=== PATIENT | male | born 1940 | race Caucasian/White ===

== ENCOUNTER 2024-02-29 09:08 | Outpatient (CLI) | payer MEDICARE, SELFPAY | END 2024-02-29 09:09 | disposition home or self-care (01) | LOC: AMB 03-03 00:03 | PROVIDERS: PCP Student in an Organized Health Care Education/Training Program; Visit Provider Family Medicine | DX: R53.1 Weakness (principal); R55 Syncope and collapse | CPT/HCPCS: A0425; A0427 ==

== ENCOUNTER 2024-02-29 09:36 | Emergency (ER) | payer MEDICARE, SELFPAY ==
[2024-02-29] VITALS (9 sets, daily range): BP systolic 120–156; BP diastolic 58–95; PULSE 60–75; RESP 14–16; TEMP 36.6–36.7; O2SAT 94–97
--- NOTE | 2024-02-29 09:55 | ED.GENADULT ---
HPI - General Adult General Chief complaint: Fall/Minor Trauma Stated complaint: Syncope Time Seen by Provider: 02/29/24 09:39 History of Present Illness HPI narrative: Patient was having a bowel movement this morning, then woke up on the floor. Lives at [facility]. Notes he was able to slowly drag himself across the floor to the phone and contact the nurse at the facility for help. Niece is Kaylie NORTON. Patient notes he recently failed a memory test. He's unable to recall medication doses, pharmacy , etc. Patient reports abrasions to back, pain in shoulders from moving across the floor. 83-year-old man presenting to the emergency department after apparent syncope. Evidently was up to have a bowel movement and woke up on the floor. Denies seizure history. Denies any pain. Says he feels fine now. He was feeling well, in usual state of health. He thinks he may have taken 2 of a newer medication earlier in the morning for ?bladder leakage?. He recalls this to be 1 of the potential side effects. No chest pain. No head pain. No neck pain. No back pain. No shortness of breath. No abdominal pain. Daughter arrives later describing some difficulties in medication management. 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 He is permitting assistance with med management. They have started a pillbox though there may still be a little bit of work to do in this. He may have taken metoprolol rather late at night and then again in the morning. We had been double dosing it in the past? Unclear indication for metoprolol. Does not recall any cardiac injury nor tachy arrhythmia. Related Data Home Medications ?Medication ?Instructions ?Recorded ?Confirmed atorvastatin .ROUTE 02/29/24 losartan .ROUTE 02/29/24 metoprolol succinate PO 02/29/24 Allergies Allergy/AdvReac Type Severity Reaction Status Date / Time No Known Drug Allergies Allergy Verified 02/29/24 09:42 Review of Systems Status of ROS: Reports: 6 or more systems reviewed and unremarkable except as noted in History and below [facility] Social History Smoking Status: Never smoker How often do you have a drink containing alcohol: 2-4 times a month How often do you have six or more drinks on one occasion: Never AUDIT-C Alcohol total score: 2 Non-prescribed substance use: denies use service: No Exam Narrative: Exam Narrative: Pleasant. NAD. Slight difficulty with recall. Head is atraumatic. Moving all extremities without difficulty. No lower extremity edema. Well-perfused. Eyelids are little inflamed and eyes are moist. Cranial nerves 2-12 to be intact. No evidence of oral trauma. Heart in regular rate and rhythm. Abdomen is full/protuberant soft and nontender. Skin looks to be without evidence of injury; specifically I do not see any abrasions, erythema. Const: Vital Signs, click to edit/add: Vital Signs - 24 hr 02/29/24 09:44 02/29/24 10:07 02/29/24 10:11 Temperature 98 F 98 F Pulse Rate [Pulse Oximeter] 64 64 Pulse Rate [orthos tatic lying Left R adial] 60 Pulse Rate [orthos tatic sitting Left Radial] 69 Pulse Rate [orthos tatic standing Lef t Radial] 75 Respiratory Rate 16 16 Blood Pressure [Le ft Upper Arm] 150/77 H 156/68 H Blood Pressure [or thostatic lying Le ft Arm] 156/68 H Blood Pressure [or thostatic sitting Left Arm] 129/76 Blood Pressure [or thostatic standing Left Arm] 126/95 H Pulse Oximetry 97 97 Oxygen Delivery Me thod Room Air Room Air 02/29/24 10:38 02/29/24 11:00 02/29/24 11:30 Temperature Pulse Rate [Pulse Oximeter] 65 66 65 Pulse Rate [orthos tatic lying Left R adial] Pulse Rate [orthos tatic sitting Left Radial] Pulse Rate [orthos tatic standing Lef t Radial] Respiratory Rate 16 14 16 Blood Pressure [Le ft Upper Arm] 127/58 L 136/76 142/73 H Blood Pressure [or thostatic lying Le ft Arm] Blood Pressure [or thostatic sitting Left Arm] Blood Pressure [or thostatic standing Left Arm] Pulse Oximetry 97 97 95 Oxygen Delivery Me thod Room Air Room Air Room Air 02/29/24 12:30 02/29/24 12:45 02/29/24 12:54 Temperature 98.1 F 98.1 F 98.1 F Pulse Rate [Pulse Oximeter] 66 66 66 Pulse Rate [orthos tatic lying Left R adial] Pulse Rate [orthos tatic sitting Left Radial] Pulse Rate [orthos tatic standing Lef t Radial] Respiratory Rate 16 16 16 Blood Pressure [Le ft Upper Arm] 120/58 L 120/58 L 120/58 L Blood Pressure [or thostatic lying Le ft Arm] Blood Pressure [or thostatic sitting Left Arm] Blood Pressure [or thostatic standing Left Arm] Pulse Oximetry 94 Oxygen Delivery Me thod Room Air Documenting provider has reviewed patient's vital signs: yes Course Vital Signs Vital signs: Initial Vital Signs Temperature 98 F 02/29/24 09:44 Temperature Source Temporal Artery Scan 02/29/24 09:44 Pulse Rate 64 02/29/24 09:44 Respiratory Rate 16 02/29/24 09:44 Blood Pressure 150/77 H 02/29/24 09:44 Blood Pressure Mean 101 02/29/24 09:44 Blood Pressure Position Semi-Fowlers 02/29/24 09:44 Pulse Oximetry 97 02/29/24 09:44 Oxygen Delivery Method Room Air 02/29/24 09:44 Vital Signs Temperature 98 F 02/29/24 09:44 Pulse Rate 64 02/29/24 09:44 Respiratory Rate 16 02/29/24 09:44 Blood Pressure 150/77 H 02/29/24 09:44 Pulse Oximetry 97 02/29/24 09:44 Oxygen Delivery Method Room Air 02/29/24 09:44 Temperature 98.1 F 02/29/24 12:54 Pulse Rate 66 02/29/24 12:54 Respiratory Rate 16 02/29/24 12:54 Blood Pressure 120/58 L 02/29/24 12:54 Pulse Oximetry 94 02/29/24 12:30 Oxygen Delivery Method Room Air 02/29/24 12:30 Medications Administered Medications: Discontinued Medications Generic Name Dose Route Start Last Admin Trade Name Freq PRN Reason Stop Dose Admin Ceftriaxone Sodium 1 gm 02/29/24 12:11 02/29/24 12:26 Ceftriaxone 1 Gm Vial IM 02/29/24 12:12 1 gm ONCE ONE Administration Lidocaine HCl 2.1 ml 02/29/24 12:11 02/29/24 12:27 Lidocaine 1% 5 Ml (Pf) 5 Ml Vial IM 2.1 ml DIRECTED PRN Administration Pain Medical Decision Making MDM Narrative Medical decision making narrative: Will need to be clarifying medications. May have been med affect contributing. Does appear to have been a vasovagal event but will look for evidence of cardiovascular injury or dysrhythmia. 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 White count is not elevated. Labs generally reassuring though urinalysis clearly with evidence of infection. Certainly may have contributed to propensity to syncope Be given a dose of Rocephin here in the emergency department does feel well enough to return home. Hemodynamically stable here. No events on monitor. Has been able to rest. Initiating on cephalexin. Urine culture pending. See patient discharge plan for further discussion Lab Data Lab results reviewed: Yes I reviewed the patient's lab results Labs: Lab Results 02/29/24 02/29/24 Range/Units 09:55 10:24 WBC 9.85 (4.50-11.00) K/uL RBC 4.32 (4.30-5.90) m/uL Hgb 13.0 L (13.5-17.5) gm/dL Hct 40.5 (37.0-53.0) % MCV 94 (80-100) fL MCH 30 (26-34) pg MCHC 32 (32-36) gm/dL RDW Coeff of Laura 12.6 (11.5-15.5) % Plt Count 127 L (140-440) K/uL Neut % (Auto) 80.3 H (42.0-72.0) % Lymph % (Auto) 4.5 L (20-44) % Divide % (Auto) 13.9 H (0.0-11.0) % Eos % (Auto) 0.0 (0.0-7.0) % Baso % (Auto) 0.3 (0.0-3.0) % Neut # (Auto) 7.90 H (1.7-7.0) K/uL Lymph # (Auto) 0.40 L (0.90-2.90) K/uL Divide # (Auto) 1.40 H (0.00-0.90) K/UL Eos # (Auto) 0.00 (0.00-0.50) K/uL Baso # (Auto) 0.03 (0.00-0.30) K/uL Abs Immat Gran (auto) 0.10 (0.00-0.30) K/uL Imm/Tot Granulo (auto) 1.0 % Sodium 140 (135-149) mmol/L Potassium 4.7 (3.6-5.1) mmol/L Chloride 105 (96-114) mmol/L Carbon Dioxide 25 (20-32) mmol/L Anion Gap 10 (7-15) mEq/L BUN 25 (7-30) mg/dL Creatinine 1.5 (0.5-1.5) mg/dL Estimated GFR 46 ml/min Glucose 99 (60-115) mg/dL Calcium 9.9 (8.4-10.6) mg/dL Troponin I < 0.01 L (0.01-0.04) ng/mL NT-Pro-B Natriuret Pep 515 pg/mL Urine Color Yellow (Yellow) Urine Appearance Cloudy A (Clear) Urine pH 7.0 (5.0-8.5) Ur Specific [place] 1.015 (1.000-1.030) Urine Protein 3+ A (Negative) Urine Glucose (UA) Negative (Negative) Urine Ketones Negative (Negative) Urine Blood 2+ A (Negative) Urine Nitrite Positive A (Negative) Urine Bilirubin Negative (Negative) Urine Urobilinogen 0.2 (0.2-1.0) Ur Leukocyte Esterase 2+ A (Negative) Urine RBC 2-5 A (0-2) Urine WBC >100 A (0-5) Ur Squamous Epith Cells Few (None-Few) Urine Bacteria Many A (None) ECG Data Attestation: I personally reviewed and interpreted this ECG as follows: (Normal sinus rhythm rate of 65. Baseline irritability. No ischemic changes appreciated) Discharge Plan Discharge Clinical Impression: Cystitis, Syncope Patient Disposition: Home w/ Parent or Adult Condition: Stable Additional Instructions: Do focus on hydration over the next 2-3 days in particular. Take care with transitions. I would also suggest keeping a walker close by and using this over the same time period. Monitor for fever, increasing weakness, repeated vomiting. Would review dosing and need for metoprolol in follow-up clinic visit. Of course be careful not to double dose your medication. Sounds as though you have a good support network. Prescribing cephalexin from [facility]. Urine culture will be pending. Prescriptions: No Action metoprolol succinate PO losartan .ROUTE atorvastatin .ROUTE Stand Alone Forms: Coffee and Power Info Instructions
[2024-02-29 10:29] LABS: Appearance Urine Cloudy (Clear); Bilirubin Urine Negative (Negative); Blood Urine 2+ (Negative); Color Urine Yellow (Yellow); Glucose Urine Negative (Negative); Ketones Urine Negative (Negative); Leukocyte Esterase Urine 2+ (Negative); Nitrite Urine Positive (Negative); Protein Urine 3+ (Negative); Specific Gravity Urine 1.015 (1.000-1.030); Urobilinogen Urine 0.2 (0.2-1.0)
[2024-02-29 10:30] LABS: Basophils Absolute Auto 0.03 K/uL (0.00-0.30); Basophils Percent Auto 0.3 % (0.0-3.0); Hematocrit 40.5 % (37.0-53.0); Lymphocytes Percent Auto 4.5 % (20-44); Mean Corpuscular HGB Conc 32 gm/dL (32-36); Mean Corpuscular Hemoglobin 30 pg (26-34); Mean Corpuscular Volume 94 fL (80-100); Monocytes Percent Auto 13.9 % (0.0-11.0); Neutrophils Percent Auto 80.3 % (42.0-72.0); Platelet Count* 127 K/uL (140-440); RDW Coefficient of Variation % 12.6 % (11.5-15.5); Red Blood Count 4.32 m/uL (4.30-5.90); White Blood Count* 9.85 K/uL (4.50-11.00)
[2024-02-29 10:33] LABS: Slide Review Reflex No
[2024-02-29 10:43] LABS: Chloride* 105 mmol/L (96-114); Potassium* 4.7 mmol/L (3.6-5.1); Sodium* 140 mmol/L (135-149)
[2024-02-29 10:46] LABS: Anion Gap 10 mEq/L (7-15); Carbon Dioxide* 25 mmol/L (20-32); Creatinine* 1.5 mg/dL (0.5-1.5); Estimated Glomerular Filt Rate 46 ml/min
[2024-02-29 10:47] LABS: Blood Urea Nitrogen* 25 mg/dL (7-30); Calcium* 9.9 mg/dL (8.4-10.6); Glucose* 99 mg/dL (60-115)
[2024-02-29 10:52] LABS: Bacteria Urine Many; Squamous Epithelial Cell Urine Few (None-Few); WBC Urine >100 (0-5)
[2024-02-29 11:00] LABS: NT Pro B Type NatriureticPept* 515 pg/mL; Troponin I* < 0.01 ng/mL (0.01-0.04)
[2024-02-29] MEDS: cefTRIAXone 1 GM VIAL IM (12:26)
[2024-02-29] MEDS: LIDOCAINE 1% 5 ml (pf) 5 ML VIAL 2.1 ML IM (12:27)
== END 2024-02-29 12:45 | disposition home or self-care (01) ==
PROVIDERS: Emergency Provider Family Medicine; PCP Student in an Organized Health Care Education/Training Program
DX: R55 Syncope and collapse (principal); N30.90 Cystitis, unspecified without hematuria
CPT/HCPCS: 36415; 80048; 81001; 83880; 84484; 85025; 87086; 87186; 93005; 96372; 99284; J0696

== ENCOUNTER 2024-05-23 13:40 | Outpatient (CLI) | payer MEDICARE, SELFPAY ==
[2024-05-23 15:12] LABS: Chloride* 102 mmol/L (96-114)
[2024-05-23 15:13] LABS: Potassium* 4.4 mmol/L (3.6-5.1); Sodium* 137 mmol/L (135-149)
[2024-05-23 15:15] LABS: Creatinine* 1.3 mg/dL (0.5-1.5); Estimated Glomerular Filt Rate 55 ml/min
[2024-05-23 15:16] LABS: Anion Gap 8 mEq/L (7-15); Blood Urea Nitrogen* 27 mg/dL (7-30); Calcium* 9.3 mg/dL (8.4-10.6); Carbon Dioxide* 27 mmol/L (20-32); Glucose* 90 mg/dL (60-115)
== END 2024-05-23 13:41 | disposition home or self-care (01) ==
LOC: LAB 13:43
PROVIDERS: PCP Student in an Organized Health Care Education/Training Program; Visit Provider Nurse Practitioner Gerontology
DX: I10 Essential (primary) hypertension (principal)
CPT/HCPCS: 36415; 80048

== ENCOUNTER 2024-07-11 18:52 | Outpatient (REF) | payer MEDICARE, SELFPAY ==
[2024-07-11 15:24] LABS: Basophils Percent Auto 0.5 % (0.0-3.0); Eosinophils Percent Auto 1.5 % (0.0-7.0); Hematocrit 38.5 % (37.0-53.0); Hemoglobin* 12.5 gm/dL (13.5-17.5); Immature Granulocytes Pct Auto 4.8 %; Mean Corpuscular HGB Conc 33 gm/dL (32-36); Mean Corpuscular Hemoglobin 30 pg (26-34); Mean Corpuscular Volume 92 fL (80-100); Monocytes Percent Auto 15.3 % (0.0-11.0); Neutrophils Percent Auto 39.9 % (42.0-72.0); Platelet Count* 122 K/uL (140-440); RDW Coefficient of Variation % 12.9 % (11.5-15.5); Red Blood Count 4.17 m/uL (4.30-5.90); White Blood Count* 3.92 K/uL (4.50-11.00)
[2024-07-11 15:29] LABS: Chloride* 104 mmol/L (96-114); Sodium* 138 mmol/L (135-149)
[2024-07-11 15:32] LABS: Anion Gap 7 mEq/L (7-15); Blood Urea Nitrogen* 23 mg/dL (7-30); Carbon Dioxide* 27 mmol/L (20-32); Creatinine* 1.1 mg/dL (0.5-1.5); Estimated Glomerular Filt Rate 67 ml/min; Glucose* 115 mg/dL (60-115)
[2024-07-11 15:55] LABS: Slide Review Reflex Yes
[2024-07-11 16:10] LABS: Slide Review Acceptable Review (Acceptable)
== END 2024-07-11 18:53 | disposition home or self-care (01) ==
LOC: NPINS 18:52
PROVIDERS: PCP Student in an Organized Health Care Education/Training Program; Visit Provider Nurse Practitioner Gerontology
DX: I67.9 Cerebrovascular disease, unspecified (principal); N18.31 Chronic kidney disease, stage 3a
CPT/HCPCS: 36415; 80048; 85025

== ENCOUNTER 2024-11-08 09:38 | Outpatient (REF) | payer MEDICARE, BC, SELFPAY ==
[2024-11-08 10:15] LABS: Chloride* 105 mmol/L (96-114); Sodium* 140 mmol/L (135-149)
[2024-11-08 10:16] LABS: Potassium* 4.7 mmol/L (3.6-5.1)
[2024-11-08 10:18] LABS: Blood Urea Nitrogen* 18 mg/dL (7-30); Creatinine* 1.1 mg/dL (0.5-1.5); Estimated Glomerular Filt Rate 66 ml/min
[2024-11-08 10:19] LABS: Anion Gap 7 mEq/L (7-15); Calcium* 9.2 mg/dL (8.4-10.6); Carbon Dioxide* 28 mmol/L (20-32); Glucose* 114 mg/dL (60-115)
[2024-11-08 10:43] LABS: Hemoglobin A1C* 5.4 % (0-5.6)
== END 2024-11-08 09:39 | disposition home or self-care (01) ==
LOC: NPINS 09:38
PROVIDERS: PCP Student in an Organized Health Care Education/Training Program; Referring Provider Nurse Practitioner Adult Health; Visit Provider Nurse Practitioner Adult Health
DX: R73.09 Other abnormal glucose (principal); N18.31 Chronic kidney disease, stage 3a
CPT/HCPCS: 80048; 83036

== ENCOUNTER 2024-12-07 10:41 | Outpatient (REF) | payer MEDICARE, BC, SELFPAY ==
[2024-12-07 13:23] LABS: Appearance Urine Clear (Clear); Bilirubin Urine Negative (Negative); Blood Urine Negative (Negative); Color Urine Yellow (Yellow); Glucose Urine Negative (Negative); Ketones Urine Negative (Negative); Leukocyte Esterase Urine Negative (Negative); Nitrite Urine Negative (Negative); Protein Urine Negative (Negative); Specific Gravity Urine 1.015 (1.000-1.030); Urobilinogen Urine 0.2 (0.2-1.0)
[2024-12-07 13:46] LABS: Bacteria Urine Few; RBC Urine 0-2 (0-2); WBC Urine 0-2 (0-5)
== END 2024-12-07 10:42 | disposition home or self-care (01) ==
LOC: NPINS 10:41
PROVIDERS: PCP Student in an Organized Health Care Education/Training Program; Referring Provider Nurse Practitioner Gerontology; Visit Provider Nurse Practitioner Gerontology
DX: R32 Unspecified urinary incontinence (principal)
CPT/HCPCS: 81001; 87086

== ENCOUNTER 2024-12-12 09:58 | Outpatient (REF) | payer MEDICARE, BC, SELFPAY ==
[2024-12-12 13:03] LABS: Chloride* 103 mmol/L (96-114); Potassium* 4.4 mmol/L (3.6-5.1); Sodium* 139 mmol/L (135-149)
[2024-12-12 13:06] LABS: Anion Gap 9 mEq/L (7-15); Blood Urea Nitrogen* 19 mg/dL (7-30); Calcium* 9.2 mg/dL (8.4-10.6); Carbon Dioxide* 27 mmol/L (20-32); Creatinine* 1.2 mg/dL (0.5-1.5); Estimated Glomerular Filt Rate 60 ml/min; Glucose* 124 mg/dL (60-115)
[2024-12-12 13:44] LABS: PSA Screen* < 0.06 ng/mL (0.10-4.00)
== END 2024-12-12 09:59 | disposition home or self-care (01) ==
LOC: NPINS 09:58
PROVIDERS: PCP Student in an Organized Health Care Education/Training Program; Referring Provider Nurse Practitioner Gerontology; Visit Provider Nurse Practitioner Gerontology
DX: Z12.5 Encounter for screening for malignant neoplasm of prostate (principal)
CPT/HCPCS: 80048; G0103

== ENCOUNTER 2024-12-26 10:59 | Outpatient (REF) | payer MEDICARE, BC, SELFPAY ==
[2024-12-26 11:32] LABS: Hemoglobin A1C* 5.6 % (0-5.6)
--- OUTSIDE RECORDS SUMMARY | 2024-12-26 11:44 | XMS_ITS | Clinical Summary ---
Author Organization [facility] Address [address] [place] [id number] Care Team Providers Care Manager Forensic Name Role Phone Audra Hunter MD Primary Care Provider + Allergies Active Allergy Reactions Criticality Noted Date Comments Bee Venom Protein (Honey Bee) Other - Describe In Comment Field Medium 12/08/2011 Swelling in the area of the sting Medications (u) PRILOSEC CAP 20MG CR 1 daily prn for infreq acidity 30 0 9 Active acetaminophen (TYLENOL EXTRA STRGTH) 500 mg tablet Take 500 mg by mouth every 6 hours if needed. Active donepeziL (ARICEPT) 5 mg tabletIndications:N eurocognitive disorder Take 1 Tablet (5 mg) by mouth at bedtime. Take with dinner time 90 Tablet 3 4 Active losartan (COZAAR) 25 mg tabletIndications:E ssential hypertension, benign Take 1 Tablet (25 mg) by mouth two times daily. 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 Overview (11/18/2023): Uses perservision tablet Last seen by Ophthalmology team August, Acquired absence of other genital organ(s) 02/14 Hypertensive kidney disease, stage II 02/14/2021 Overview (11/18/2023): - home systolic BP 110-130 - continue losartan 25 mg Mild bradycardia - continue Metoprolol 12.5 Male urinary stress incontinence 02/14/2021 Overview (11/18/2023): - he follows up with urology and last seen 03/2022 - he wears pad someday Personal history of other malignant neoplasm of skin 02/14/2021 Other specified postprocedural states 02/14/2021 Retention of urine 02/14/2021 Overview (11/18/2023): Hx of Urinary retention - uro flow from 08/2020 with residual urine of 338 ml - US with no hydronephrosis 09/2020 - not able to void during uro flow 09/2020 but PVR of 80 cc Hyperlipidemia 08/21/2020 Overview (11/18/2023): - continue Lipitor 40 mg, last lipid profile with LDL of 83 on 08/2022 Tricompartment osteoarthritis of right knee 12/03 Overview (11/18/2023): Last Assessment & Plan: Follow-up with orthopedics as scheduled Last Assessment & Plan: 12/22/2019 X-ray shows tricompartmental space narrowing, and slight subpatellar edema. Patient requests referral to orthopedics Last Assessment & Plan: Follow-up with orthopedics as scheduled Last Assessment & Plan: 12/22/2019 X-ray shows tricompartmental space narrowing, and slight subpatellar edema. 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 11/08/2017 Arteriosclerosis of coronary artery 04/30/2017 Overview (11/18/2023): 11/26/16 stress echo shows ejection fraction preserved at 55% with suggestion of apical ischemia with exertion Followed by cardiology Last Assessment & Plan: Followed by cardiology Denies any angina, dyspnea, palpitations or lower extremity edema Continue metoprolol succinate 25 mg taking 1/2 tabs (12.5 mg) daily Continue losartan 25 mg nightly CAD( as per angiography) without stenting - Coronary angiography at [place], [place] demonstrated obstructive disease of 1st and 2nd diagonal branch not amenable to intervention. - continue Lipitor - TTE 08/2021 with LVEF of 60--65% Hx of Gastric ulcer( X 2) presumed to be from baby aspirin which is somehow unusual as most people tolerate it - not taking aspirin Last Assessment & Plan: CAD( as per angiography) without stenting - lipitor Hx of Gastric ulcer( X 2) presumed to be from baby aspirin which is very unusual - not taking aspirin 11/26/16 stress echo shows ejection fraction preserved at 55% with suggestion of apical ischemia with exertion Followed by cardiology Last Assessment & Plan: Followed by cardiology Denies any angina, dyspnea, palpitations or lower extremity edema Continue metoprolol succinate 25 mg taking 1/2 tabs (12.5 mg) daily Continue losartan 25 mg nightly Dupuytren's contracture 10/15/2016 Overview (11/18/2023): Last Assessment & Plan: History of surgical intervention on the right hand, and injected therapy on the left hand, patient has no current complaints Last Assessment & Plan: History of surgical intervention on the right hand, and injected therapy on the left hand, patient has no current complaints Personal history of malignant neoplasm of prosta te 01/01/2010 Overview (11/18/2023): Last Assessment & Plan: PSAs have been normal continue to follow PSAs Hx of Prostate cancer s/p prostatectomy( 1997) - PSA undetectable 08/2020 and 03/2022 Dyslipidemia 12/25/2008 Overview (11/18/2023): Last Assessment & Plan: Controlled Continue lovastatin 40 mg nightly Last Assessment & Plan: Controlled Continue lovastatin 40 mg nightly Hx of prostatectomy 02/22/2007 S/P lumbar laminectomy 02/22/2007 Overview (11/18/2023): 2001 DERMATITIS, 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 -ACT INIC 11/10/1999 NEOPLASM, MALIGNANT, PROSTATE- RAMIRO 5 RADICAL PROST05/09/1998 HYPERTENSION, BENIGN ESSENTI AL -DX/RX MINIMAL, FAMILIAL 03/25/1998 HYPERCHOLESTEROLEMIA, PURE -PRAVACHOL ; LIPI TOR 03/25/1998 URTICARIA NOS -IDEOPATHIC, INFREQUENT 03/25/1998 Encounters Date Type Department Care Team Description 11/11/2024 Refill [facility] [address] [place] [address] Selina Craft DO Refill Request (Senna) 10/19/2024 Telephone [facility] [address] [place] [address] Selina Craft DO Blood Pressure 10/18/2024 Telephone [facility] [address] [place] [address] Selina Craft DO Error-please disregard from Last 3 Months Immunizations Immunization Administration Dates Next Due Td (Age >=7 Years) 05/06/1992 Family History Medical History Relation Name Comments Genetic Other 1 Father of [place] age 68~Mother of pneumonia age 85 and senile demintia after 80 y/o~Relevant illness in sibling; 1/2 sister ETOH cirrhosis age 50; another 1/2 sister who was a twin age 70 from heart attack and also dx with colon cancer (dx at* Genetic Other 2 Father of [place] age 68~Mother of pneumonia age 85 and senile demintia after 80 y/o; lost kidney ? cause approx 60y/o~Relevant illness in sibling; 1/2 sister ETOH cirrhosis age 50; another 1/2 sister who was a twin age 70 from heart attack an* Relation Name Status Comments Other 1 Other 2 Social History Tobacco Use Types Packs/Day Years Used Date Smoking Tobacco: Former Cigarettes Q uit: 1975 Smokeless Tobacco: Never Tobacco Cessation:Counseling Given: No Alcohol Use Standard Drinks/Week Comments Yes 0 (1 standard drink = 0.6 oz pur e alcohol) Alcoholic Drinks/day: 1.2 PHQ-2 Answer Date Recorded PHQ-2 TOTAL SCORE 0 03/10/2024 Social Connections Answer Date Recorded Do you often feel lonely or isolated from those around you? 0 11/18/2023 Financial Resource Strain Answer Date R ecorded Difficulty of Paying Living Expenses 3 11/18/2023 Difficulty of Paying Living Expenses Not on file 11/18/2023 Food Insecurity Answer Date Recorded Do you worry your food will run out before you are able to buy more? 1 11/18/2023 Transportation Needs Answer Date Record ed Does lack of transportation keep you from medica l appointments? 1 11/18/2023 Does lack of transportation keep you from work, meetings or getting things that you need? 1 11/18/2023 Housing Stability Answer Date Recorded What is your housing situation today? 1 11/18/2023 Utilities Answer Date Recorded Do you have trouble paying f or utilities (for example, heat, electricity, water, phone)? 1 11/18/2023 Sex and Gender Information Value Date Recorded Sex Assigned at Not on file Legal Sex Male 5:22 AM STACKER ATTENDANT Gender Identity Not on file Sexual Orientation Not on file Obstetrics History Last Filed Vital Signs Vital Sign Reading Time Taken Comments Blood Pressure 155/81 03/10/2024 9:52 AM CDT Pulse 54 03/10/2024 9:52 AM CDT Temperature 36.4 C (97.6 F) 05/31/1998 12:00 AM STACKER ATTENDANT Respiratory Rate 16 05/17/1998 12:00 AM STACKER ATTENDANT Oxygen Saturation 99% 03/10/2024 9:52 AM CDT Inhaled Oxygen Concentration - - Weight 67.2 kg (148 lb 3.2 oz) 03/10/2024 9:52 A M CDT Height 163 cm (5' 4.17) 03/10/2024 9:52 AM CDT Body Mass Index 25.3 03/10/2024 9:52 AM CDT Plan of Treatment Health Maintenance Due Date Last Done Comments Tdap 1951 Pneumococcal series for age 50+ (1 of 2 - PCV) 1959 Zoster (shingles) series for age 50+ (1 of 2) 1990 Tetanus booster 05/06/2002 05/06/1992 RSV vaccine for adults or (1 - 1-dose 75+ series) 2015 COVID-19 vaccine series ( season) 2024 04/12/2023, 04/06/2022, 10/21/2021, Additional history exists Influenza Vaccine (Season Ended) 2025 BMI (ht and wt on same day) for age 18+ 03/10/2025 03/10/2024 Depression screening for age 12+ 03/10/2025 03/10/2024 Medicare Wellness for age 65+ 03/11/2025 03/10/2024 Hepatitis B series for 19+ Aged Out N o longer eligible based on patient's age to complete this topic Insurance MEDICARE PART B HB ONLY MEDICARE PB ONLY [facility] Advance Directives Documents on File Type Date Recorded 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
--- OUTSIDE RECORDS SUMMARY | 2024-12-26 11:44 | XMS_ITS | Encounter Summary ---
Author Organization [facility] Address [address] [place] [address] Care Team Providers Care Program Development Specialist Name Role Phone Elsewhere, Pcp Primary Care Provider Unavailabl e Encounter Details Date Type Department Care Team (Late st Contact Info) Description 02/26/2022 Orders Only [facility] [address] [place] [address] [facility], Provider, Screening Test Laboratory Social History Tobacco Use Types Packs/Day Years Used Date Smoking Tobacco: Former Pipe Passive Smoke Exposure: Past Smokeless Tobacco: Never Comments:quit 40 yrs ago Alcohol Use Standard Drinks/Week Comments Yes 1 (1 standard drink = 0.6 oz pur e alcohol) average 1 beer a day Humiliation, Afraid, Rape, and Kick questionnair e Answer Date Recorded Within the last year, have y ou been afraid of your partner or ex-partner? No 02/15/2022 Within the last year, have y ou been humiliated or emotionally abused in other ways by your partner or ex-partner? No Within the last year, have y ou been kicked, hit, slapped, or otherwise physically hurt by your partner or ex-partner? No 02/15/2022 Within the last year, have y ou been raped or forced to have any kind of sexual activity by your partner or ex-partner? No 02/15/2022 Hunger Vital Sign Answer Date Recorded Within the past 12 months, y ou worried that your food would run out before you got the money to buy more. Never true 02/16/20 22 Within the past 12 months, t he food you bought just didn't last and you didn't have money to get more. Never true 02/15/2022 PRAPARE - Transportation Answer Date Re corded In the past 12 months, has l ack of transportation kept you from medical appointments or from getting medications? No 02/02 In the past 12 months, has l ack of transportation kept you from meetings, work, or from getting things needed for daily living? No 02/15/2022 Housing Stability Vital Sign Answer Dung e Recorded In the last 12 months, was t here a time when you were not able to pay the mortgage or rent on time? No 02/15/2022 In the last 12 months, how many places have you lived? 1 02/15/2022 In the last 12 months, was t here a time when you did not have a steady place to sleep or slept in a senior care (including now)? No 02/15/2022 Depression Answer Date Recor ded PHQ-9 Total Score (max 27) 0 01/26 Education Answer Date Recorded What is the highest level of school you have completed or the highest degree you have received? Bachelor's degree (e.g., BA, AB, BS) 02/15/2022 Sex and Gender Information Value Date Recorded Sex Assigned at Male 03/06/2021 10:40 AM CDT Legal Sex Male 2:54 PM CASE INVESTIGATOR Gender Identity Male 08/08/2020 8:57 AM CASE INVESTIGATOR Sexual Orientation Straight 07/27/2020 8: 49 AM CASE INVESTIGATOR documented as of this encounter Plan of Treatment Not on file documented as of this encounter Visit Diagnoses Diagnosis Screening Test Laboratory documented in this encounter Additional Health Concerns Infection Onset Date Last Indicated Resolved Time COVID19 Pending 02/26/2022 02/26/2022 02/26/2022 1 1:40 AM CDT COVID19 Pending 02/26/2022 02/26/202202/26/2022 1 :12 PM CDT COVID19 Pending 06/19/2022 06/19/2022 06/19/2022 1 0:27 AM CASE INVESTIGATOR COVID19 Pending 06/19/2022 06/19/2022 06/19/2022 1 1:20 AM CASE INVESTIGATOR COVID19 06/19/2022 06/19/2022 07/09/2022 5:18 AM CASE INVESTIGATOR Assessment Noted Time PHQ-9 Depression Total Score: 0 01/27/20 9:25 AM CDT documented as of this encounter Care Teams Program Development Specialist Relationship Specialty Start Date End Date Elsewhere, Pcp PCP - General Internal Medicine 10/26/24 documented as of this encounter
--- OUTSIDE RECORDS SUMMARY | 2024-12-26 11:44 | XMS_ITS | Clinical Summary ---
Author Organization [facility] Address [address] [place] [address] Care Team Providers Care Help Desk Technician Name Role Phone Elsewhere, Pcp Primary Care Provider Unavailabl e Source Comments Patient records contain information from all sites at [facility]. For routine questions regarding patient records, call [phone] during business hours, M-F 8:00 AM - 5:00 PM Central Time. Record requests for emergency care only can be directed to [phone] at any time.[facility] Allergies Active Allergy Reactions Criticality Noted Date Comments Pollen Extracts Cough 12/15/2017 Medications * This document contains information received from the source organization and may not represent a complete record from that organization. acetaminophen (TYLENOL) 500 mg tablet Take 500 mg by mouth every 6 (six) hours as needed. Active vit C,F-Ze-snfck-pippa tein-zeaxan (PreserVision AREDS-2) 250-90-40-1 mg per capsule Take 1 capsule by mouth 2 (two) times a day with meals. 60 capsule 11 2 Active fluocinonide (LIDEX) 0.05 % external solution Apply up to 15 drops to the scaly scalp daily for up to 1-2 weeks as needed, then decrease to 2-3 times a week. 60 mL 3 2 Active peg 400-propylene glycol (SYSTANE) 0.4-0.3 % ophthalmic solution 1 drop as needed for dry eyes. Active metoprolol succinate (TOPROL-XL) 25 mg 24 hr tablet Take 0.5 tablets (12.5 mg total) by mouth daily. 45 tablet 3 3 Active losartan (COZAAR) 25 mg tablet TAKE 1 TABLET (25 MG TOTAL) BY MOUTH DAILY. 90 tablet 3 3 Active atorvastatin (LIPITOR) 40 mg tablet TAKE 1 TABLET (40 MG TOTAL) BY MOUTH DAILY. 90 tablet 2 3 Active latanoprost (XALATAN) 0.005 % ophthalmic solution ADMINISTER 1 DROP INTO BOTH EYES AT BEDTIME. 7.5 mL 3 3 Active Active Problems Problem Noted Date Diagnosed Date Metabolizer [id number] Rapid 09/07/20232023 Overview (09/07/2023): With prodrugs that are activated by AUQ3S43, such as clopidogrel, increased drug activation may occur and may result in side effects (such as bleeding with clopidogrel). 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 Overview (07/02/2022): Covid (06/19/2022) s/p paxlovid Pain Hand Right 07/02/2022 Overview (09/07/2022): Right hand/wrist arthritis > left - worse with movement - x-ray right hand 02/2022 reviewed - Voltaren gel as needed - brace PRN Bradycardia 03/05/2022 Overview (09/07/2022): - mild - EKG 08/2021 and 08/2022 with mild bradycardia - trial to be off metoprolol was unsuccessful due to elevated blood pressure and is back on metoprolol Dizziness 01/26/2022 Overview (09/07/2022): improved - has been advised to use compression stockings but has not required So far Cerumen Impacted Left 01/26/2022 Overview (01/26/2022): Was cleaned last year on 02/2021 We will rinse again today 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 Overview (09/07/2022): Uses perservision tablet Last seen by Ophthalmology team August, Lightheadedness 08/21/2021 Hypertensive Chronic Kidney Disease With Stage 1 Through Stage 4 Chronic Kidney Disease, Or Unspecified Chronic Kidney Disease 02/14/2021 Overview (07/02/2022): - home systolic BP 110-130 - continue losartan 25 mg Mild bradycardia - continue Metoprolol 12.5 Retention Urinary 02/14/2021 Overview (02/01/2022): Hx of Urinary retention - uro flow from 08/2020 with residual urine of 338 ml - US with no hydronephrosis 09/2020 - not able to void during uro flow 09/2020 but PVR of 80 cc Incontinence Urinary Stress Male 02/14/2021 Overview (07/02/2022): - he follows up with urology and last seen 03/2022 - he wears pad someday Cancer Skin Squamous Cell Personal History 02/14 Cancer Skin Basal Cell Personal History 02/15/20 21 Glaucoma 02/14/2021 Overview (09/07/2022): - glaucoma suspect - uses latanoprost - seen by Ophthalmology team 08/2022 Tonsillectomy Status Post 02/14/2021 Prostatectomy Status Post 02/14/2021 Personal History Of Malignant Neoplasm Of Prosta te 02/14/2021 Overview (07/02/2022): Hx of Prostate cancer s/p prostatectomy( 1997) - PSA undetectable 08/2020 and 03/2022 Coronary Artery Disease Without Angina Pectoris 08/21/2020 Overview (09/07/2022): CAD( as per angiography) without stenting - Coronary angiography at [place], [place] demonstrated obstructive disease of 1st and 2nd diagonal branch not amenable to intervention. - continue Lipitor - TTE 08/2021 with LVEF of 60--65% Hx of Gastric ulcer( X 2) presumed to be from baby aspirin which is somehow unusual as most people tolerate it - not taking aspirin Assessment & Plan (01/26/2022 9:23 AM CDT): CAD( as per angiography) without stenting - lipitor Hx of Gastric ulcer( X 2) presumed to be from baby aspirin which is very unusual - not taking aspirin Hypertension Essential Primary 08/21/2020 Hyperlipidemia 08/21/2020 Overview (09/07/2022): - continue Lipitor 40 mg, last lipid profile with LDL of 83 on 08/2022 Primary Osteoarthritis Knee Right 12/22/2019 Overview (07/02/2022): Last Assessment & Plan: Follow-up with orthopedics as scheduled Primary Osteoarthritis Knee Right 12/22/2019 Overview (07/02/2022): Last Assessment & Plan: 12/22/2019 X-ray shows tricompartmental space narrowing, and slight subpatellar edema. Patient requests referral to orthopedics Presence Of Intraocular Lens 12/21/2017 Overview (09/07/2022): B/l Seen by Ophthalmology team 08/2022 Myopia Bilateral 11/08/2017 Atherosclerotic Heart Diseas e Of [place] Coronary Artery Without Angina Pectoris 04/30/2017 Overview (07/02/2022): 11/26/16 stress echo shows ejection fraction preserved at 55% with suggestion of apical ischemia with exertion Followed by cardiology Last Assessment & Plan: Followed by cardiology Denies any angina, dyspnea, palpitations or lower extremity edema Continue metoprolol succinate 25 mg taking 1/2 tabs (12.5 mg) daily Continue losartan 25 mg nightly Dupuytrens Disease Hand 10/15/2016 Overview (07/02/2022): Last Assessment & Plan: History of surgical intervention on the right hand, and injected therapy on the left hand, patient has no current complaints Keratosis Actinic 01/23/2009 Dyslipidemia 12/25/2008 Overview (07/02/2022): Last Assessment & Plan: Controlled Continue lovastatin 40 mg nightly Encounters Date Type Department Care Team Description 10/11/2024 Orders Only [facility] Alfredo Mcwilliams M.D. Monitoring For Therapeutic Drug Therapy from Last 3 Months Immunizations Immunization Administration Dates Next Due HZV (ZOSTAVAX) 01/29/2010 Influenza TIV (IM) 04/17/2010,04/04/2009, 008 Influenza high dose QV(65 ye ars or older) (PF) 04/16/2020,04/13/2019,04/26/2018,2016,04/30/2016,05/01/2015,04/17/2014,1 ,04/19/2012,04/09/2011 Influenza, Quadrivalent, Adj uvanted, Preservative Free 04/06/2022,04/03/2021 Influenza, Unspecified 04/19/2012,2010,04/17/2010,2008,04/18/2008 PCV13 03/06/2015 PPSV23 12/09/2005 RZV (SHINGRIX) 05/15/2020,11/02/2019 SARS-COV-2 (COVID-19) - PFIZ ER (Discontinued)(12 years or older) 04/08/2021,09/23/2020,08/28/2020 SARS-COV-2 (COVID-19) - PFIZ ER TS(Discontinued)(12 years or older) 10/21/2021 Td (Adult), adsorbed 04/09/2003 Tdap 03/25/2023,01/19/2013,04/09/2003 influenza trivalent high dos e (HD)(PF) 04/13/2019,04/26/2018,04/15/2017,2015,05/01/2015,04/17/2014,04/25/2013 Family History Medical History Relation Name Comments Glaucoma Aunt/Uncle uncle Coronary artery disease Brother Ryan Dece ased Stroke Brother Ryan Coronary artery disease Father Víctor Dece ased Hypertension Father Víctor Kidney disease Mother Frannie Macular degeneration Mother Frannie Glaucoma Paternal Grandmother Alcohol abuse Sister Oralia Relation Name Status Comments Aunt/Uncle uncle Brother Ryan Father Víctor Mother Frannie Paternal Grandmother Sister Oralia Social History Tobacco Use Types Packs/Day Years Used Date Smoking Tobacco: Former Pipe Passive Smoke Exposure: Past Smokeless Tobacco: Never Comments:dates are approxima te Alcohol Use Standard Drinks/Week Comments Not Currently 0 (1 standard drink = 0.6 oz pur e alcohol) [facility] Utilities Answer Date Recorded In the past 12 months has th e [employer], gas, oil, or water [employer] threatened to shut off services in your home? No 09/04/2023 Humiliation, Afraid, Rape, and Kick questionnair e Answer Date Recorded Within the last year, have y ou been afraid of your partner or ex-partner? No 03/25/2023 Within the last year, have y ou been humiliated or emotionally abused in other ways by your partner or ex-partner? No Within the last year, have y ou been kicked, hit, slapped, or otherwise physically hurt by your partner or ex-partner? No 03/25/2023 Within the last year, have y ou been raped or forced to have any kind of sexual activity by your partner or ex-partner? No 03/25/2023 Hunger Vital Sign Answer Date Recorded Within the past 12 months, y ou worried that your food would run out before you got the money to buy more. Never true 09/04/19 24 Within the past 12 months, t he food you bought just didn't last and you didn't have money to get more. Never true 09/04/2023 PRAPARE - Transportation Answer Date Re corded In the past 12 months, has l ack of transportation kept you from medical appointments or from getting medications? No 08/2023 In the past 12 months, has l ack of transportation kept you from meetings, work, or from getting things needed for daily living? No 09/04/2023 Depression Answer Date Recor ded PHQ-9 Total Score (max 27) 0 01/26 Housing Stability Answer Date Recorded What is your living situation today? I have a [facility] place to live 09/04/2023 Education Answer Date Recorded What is the highest level of school you have completed or the highest degree you have received? Bachelor's degree (e.g., BA, AB, BS) 02/15/2022 Sex and Gender Information Value Date Recorded Sex Assigned at Male 03/06/2021 10:40 AM CDT Legal Sex Male 2:54 PM UNIT AID Gender Identity Male 08/08/2020 8:57 AM UNIT AID Sexual Orientation Straight 07/27/2020 8: 49 AM UNIT AID Last Filed Vital Signs Vital Sign Reading Time Taken Comments Blood Pressure 129/78 09/08/2023 8:15 AM UNIT AID Pulse 56 09/08/2023 8:15 AM UNIT AID Temperature 36.8 C (98.2 F) 03/25/2023 11:18 AM CDT Respiratory Rate 16 09/07/2022 9:10 AM UNIT AID Oxygen Saturation 97% 09/08/2023 7:51 AM UNIT AID Inhaled Oxygen Concentration - - Weight 65 kg (143 lb 4.8 oz) 09/08/2023 7:51 AM UNIT AID Height 166 cm (5' 5.35) 09/08/2023 7:51 AM UNIT AID Body Mass Index 23.59 09/08/2023 7:51 AM UNIT AID Plan of Treatment Health Maintenance Due Date Last Done Comments COVID-19 Vaccine ( season) 2024 04/12/2023, 04/06/2022, 10/21/2021, Additional history exists Influenza Vaccine (#1) 2024 , 04/06/2022, 04/03/2021, Additional history exists Depression Screening (Annual PHQ-2) 07/05/2024 Fall Risk Screen (Annual) 07/05/2024 Creatinine Level (Kidney Function Test) 09/02/2024 09/03/2023, 08/04/2023, 02/01/2023, Additional history exists Potassium Level 09/02/2024 09/03/2023, 07/07, 02/01/2023, Additional history exists Sodium Level 09/02/2024 09/03/2023, 07/07, 02/01/2023, Additional history exists Office Visit for Blood Pressure Check / Re-check 09/07/2024 09/08/2023 DTaP,Tdap,and Td Vaccines (4 - Td or Tdap) 03/25/2033 03/25/2023, 01/19/2013, 04/09/2003, Additional history exists Pneumococcal vaccine (50+ years) Completed 03/06/2015, 12/09/2005 Zoster Vaccines Completed 05/15/2020, 10/05, 01/29/2010 Visit: Medicare Annual Wellness Discontinued 03/25/2023 RSV vaccine - (32-36 weeks) or 60+ years Completed 04/02/2023 IPV Vaccines Aged Out No longer eligi ble based on patient's age to complete this topic Procedures Procedure Name Priority Date/Time Associated Diagnosis Comments BASIC METABOLIC PANEL, S/P Routine 09/03/2023 11:59 AM UNIT AID Coronary Artery Disease Without Angina Pectoris Hypertension Essential Primary from Last 3 Months or Most Recently Relevant to Health Maintenance Results * Basic Metabolic Panel (09/03/2023 11:59 AM UNIT AID) Potassium, P 4.3 3.6 - 5.2 mmol/L 09/03/2023 12:52 PM UNIT AID AUST Sodium, P 142 135 - 145 mmol/L 09/03/2023 12:52 PM UNIT AID AUST Chloride, P 105 98 - 107 mmol/L 09/03/2023 12:52 PM UNIT AID AUST Bicarbonate, P 25 22 - 29 mmol/L 09/03/2023 12:52 PM UNIT AID AUST Anion Gap, P 12 7 - 15 09/03/2023 12:52 PM UNIT AID AUST BUN (Blood Urea Nitrogen), P 22 8 - 24 mg/dL 09/03/2023 12:52 PM UNIT AID AUST Creatinine 1.15 0.74 - 1.35 mg/dL 09/03/2023 12:52 PM UNIT AID AUST Estimated GFR (eGFR) 63 >=60 mL/min/BSA 09/03/2023 12:52 PM UNIT AID AUST Comment: Estimated GFR calculated using the 2020 CKD_EPI creatinine equation. Calcium, Total, P 9.7 8.8 - 10.2 mg/dL 09/03/2023 12:52 PM UNIT AID AUST Glucose, P 127 70 - 140 mg/dL 09/03/2023 12:52 PM UNIT AID AUST Blood (Blood, Venous) 09/03/2023 11:59 AM UNIT AID 09/03/2023 12:06 PM UNIT AID Sanjeev Allen M.D. LAB BLOOD ADD-ON Final Re sult [facility] [address] [place] [address], [facility] [address] [place] [address] from Last 3 Months or Most Recently Relevant to Health Maintenance Insurance [facility] MEDICARE Member Subscriber Plan / Payer (Ef fective 2005-Present) Name:David Bentley Member ID:[id number] Relation to Subscriber:Self Name:David Bentley Subscriber ID:[id number] Payer ID:Not on file Group ID:Not on file Type:Medicare Address: [address] [place] [id number] Advance Directives For more information, please contact: [phone] Documents on File Type Date Recorded Patient Clinical Data Management Director Expl anation Advance Directives 01/14/2023 3:23 PM Ary Clouddinora CoxLuciana Nunez HCPOA/ADVOCATE/AGENT/ CONTROLLER REPAIRER AND TESTER/SURROG ATE Advance Directives 09/01/2021 2:35 PM HCPO A/ADVOCATE/AGENT/ CONTROLLER REPAIRER AND TESTER/SURROG ATE Healthcare Agents on File Name Relationship Healthcare Agent Relationship Communication Ary Jaclyn Sheree Spouse Health Care Agent [email or web address] Greg Coxmax Unknown Health Care Agent Kaylie Nunez Relative Health Care Agent [email or web address] Care Teams Help Desk Technician Relationship Specialty Start Date End Date Elsewhere, Pcp PCP - General Internal Medicine 10/26/24
--- OUTSIDE RECORDS SUMMARY | 2024-12-27 00:54 | XMS_ITS | Clinical Summary ---
Author Organization [facility] Address [address] [place] [address] Care Team Providers Care Hog Driver Name Role Phone Audra Hunter MD Primary [...] Active Problems Problem Noted Date Diagnosed Date [id number] rapid metabolizer 09/07/2023 Overview (11/18/2023): With prodrugs that are activated by YOM1X38, such as clopidogrel, increased drug activation may occur and may result in side effects (such as bleeding with clopidogrel). [id number]-21 condition 07/02/2022 Overview (11/18/2023): Covid (06/19/2022) s/p [...] angiography) without stenting - Coronary angiography at [place], [place] demonstrated obstructive disease of 1st and [...] Type Department Care Team Description 11/11/2024 Refill [facility] [address] [place] [address] Selina Craft DO Refill Request (Senna) 10/19/2024 Telephone [facility] [address] [place] [address] Selina Craft DO Blood Pressure 10/18/2024 Telephone [facility] [address] [place] [address] Selina Craft DO Error-please disregard from Last 3 Months Immunizations Immunization Administration Dates Next Due Td (Age >=7 Years) 05/06/1992 Family History Medical History Relation Name Comments Genetic Other 1 Father of [place] age 68~Mother of pneumonia age 85 and senile demintia after 80 y/o~Relevant illness in sibling; 1/2 sister ETOH cirrhosis age 50; another 1/2 sister who was a twin age 70 from heart attack and also dx with colon cancer (dx at* Genetic Other 2 Father of [place] age 68~Mother of pneumonia age 85 and [...] on file Legal Sex Male 5:22 AM PATTERN CLERK Gender Identity Not on file Sexual Orientation Not on file Obstetrics History Last Filed Vital Signs Vital Sign Reading Time Taken Comments Blood Pressure 155/81 03/10/2024 9:52 AM CDT Pulse 54 03/10/2024 9:52 AM CDT Temperature 36.4 C (97.6 F) 05/31/1998 12:00 AM PATTERN CLERK Respiratory Rate 16 05/17/1998 12:00 AM PATTERN CLERK Oxygen Saturation 99% 03/10/2024 9:52 AM CDT [...] PART B HB ONLY MEDICARE PB ONLY [facility] Advance Directives Documents on File Type Date Recorded Patient Gyroscopic Engineering Technician Expl anation POL 04/18/2024 Care Teams Hog Driver Relationship Specialty Start Date End Date Audra Hunter MD [address] [id number] PCP - General Family Practice 10/19/24
--- OUTSIDE RECORDS SUMMARY | 2024-12-27 00:54 | XMS_ITS | Clinical Summary ---
Author Organization [facility] Address [address] [place] [address] Care Team Providers Care Technical Producer Name Role Phone Elsewhere, Pcp Primary Care Provider Unavailabl e Source Comments Patient records contain information from all sites at [facility]. For routine questions regarding patient records, call [phone] during business hours, M-F 8:00 AM - 5:00 PM Central Time. Record requests for emergency care only can be directed to [phone] at any time.[facility] Allergies Active Allergy Reactions Criticality Noted Date Comments Pollen Extracts Cough 12/15/2017 Medications * This document contains information received from the source organization and may not represent a complete record from that organization. acetaminophen (TYLENOL) 500 mg tablet Take 500 mg by mouth every 6 (six) hours as needed. Active vit C,G-Pg-afunx-pippa tein-zeaxan (PreserVision AREDS-2) 250-90-40-1 mg per capsule [...] Problems Problem Noted Date Diagnosed Date Metabolizer [id number] Rapid 09/07/20232023 Overview (09/07/2023): With prodrugs that are activated by MES3P11, such as clopidogrel, increased drug activation may [...] angiography) without stenting - Coronary angiography at [place], [place] demonstrated obstructive disease of 1st and [...] Bilateral 11/08/2017 Atherosclerotic Heart Diseas e Of [place] Coronary Artery Without Angina Pectoris 04/30/2017 Overview [...] Description 10/11/2024 Orders Only [facility] Alfredo Mcwilliams M.D. Monitoring For [...] drink = 0.6 oz pur e alcohol) [facility] Utilities Answer Date Recorded In the past 12 months has th e [employer], gas, oil, or water [employer] threatened to shut off services in your [...] your living situation today? I have a [facility] place to live 09/04/2023 Education Answer Date Recorded What is the highest level of school you have completed or the highest degree you have received? Bachelor's degree (e.g., BA, AB, BS) 02/15/2022 Sex and Gender Information Value Date Recorded Sex Assigned at Male 03/06/2021 10:40 AM CDT Legal Sex Male 2:54 PM RIB CHOPPER Gender Identity Male 08/08/2020 8:57 AM RIB CHOPPER Sexual Orientation Straight 07/27/2020 8: 49 AM RIB CHOPPER Last Filed Vital Signs Vital Sign Reading Time Taken Comments Blood Pressure 129/78 09/08/2023 8:15 AM RIB CHOPPER Pulse 56 09/08/2023 8:15 AM RIB CHOPPER Temperature 36.8 C (98.2 F) 03/25/2023 11:18 AM CDT Respiratory Rate 16 09/07/2022 9:10 AM RIB CHOPPER Oxygen Saturation 97% 09/08/2023 7:51 AM RIB CHOPPER Inhaled Oxygen Concentration - - Weight 65 kg (143 lb 4.8 oz) 09/08/2023 7:51 AM RIB CHOPPER Height 166 cm (5' 5.35) 09/08/2023 7:51 AM RIB CHOPPER Body Mass Index 23.59 09/08/2023 7:51 AM RIB CHOPPER Plan of Treatment Health Maintenance Due Date [...] METABOLIC PANEL, S/P Routine 09/03/2023 11:59 AM RIB CHOPPER Coronary Artery Disease Without Angina Pectoris Hypertension Essential Primary from Last 3 Months or Most Recently Relevant to Health Maintenance Results * Basic Metabolic Panel (09/03/2023 11:59 AM RIB CHOPPER) Potassium, P 4.3 3.6 - 5.2 mmol/L 09/03/2023 12:52 PM RIB CHOPPER AUST Sodium, P 142 135 - 145 mmol/L 09/03/2023 12:52 PM RIB CHOPPER AUST Chloride, P 105 98 - 107 mmol/L 09/03/2023 12:52 PM RIB CHOPPER AUST Bicarbonate, P 25 22 - 29 mmol/L 09/03/2023 12:52 PM RIB CHOPPER AUST Anion Gap, P 12 7 - 15 09/03/2023 12:52 PM RIB CHOPPER AUST BUN (Blood Urea Nitrogen), P 22 8 - 24 mg/dL 09/03/2023 12:52 PM RIB CHOPPER AUST Creatinine 1.15 0.74 - 1.35 mg/dL 09/03/2023 12:52 PM RIB CHOPPER AUST Estimated GFR (eGFR) 63 >=60 mL/min/BSA 09/03/2023 12:52 PM RIB CHOPPER AUST Comment: Estimated GFR calculated using the 2020 CKD_EPI creatinine equation. Calcium, Total, P 9.7 8.8 - 10.2 mg/dL 09/03/2023 12:52 PM RIB CHOPPER AUST Glucose, P 127 70 - 140 mg/dL 09/03/2023 12:52 PM RIB CHOPPER AUST Blood (Blood, Venous) 09/03/2023 11:59 AM RIB CHOPPER 09/03/2023 12:06 PM RIB CHOPPER Sanjeev Allen M.D. LAB BLOOD ADD-ON Final Re sult [facility] [address] [place] [address], [facility] [address] [place] [address] from Last 3 Months or Most Recently Relevant to Health Maintenance Insurance [facility] MEDICARE Member Subscriber Plan / Payer (Ef fective 2005-Present) Name:David Bentley Member ID:[id number] Relation to Subscriber:Self Name:David Bentley Subscriber ID:[id number] Payer ID:Not on file Group ID:Not on file Type:Medicare Address: [address] [place] [phone] Advance Directives For more information, please contact: [phone] Documents on File Type Date Recorded Patient Crucible Packer Expl anation Advance Directives 01/14/2023 3:23 PM Ary Clouddinora CoxLuciana Nunez HCPOA/ADVOCATE/AGENT/ SPECIAL ORDER JEWELER/SURROG ATE Advance Directives 09/01/2021 2:35 PM HCPO A/ADVOCATE/AGENT/ SPECIAL ORDER JEWELER/SURROG ATE Healthcare Agents on File Name Relationship Healthcare Agent Relationship Communication Ary Jaclyn Sheree Spouse Health Care Agent [email or web address] Coxmax Unknown Health Care Agent Kaylie Nunez Relative Health Care Agent [email or web address] Care Teams Technical Producer Relationship Specialty Start Date End Date Elsewhere, Pcp PCP - General Internal Medicine 10/26/24
--- OUTSIDE RECORDS SUMMARY | 2024-12-27 00:54 | XMS_ITS | Encounter Summary ---
Author Organization [facility] Address [address] [place] [address] Care Team Providers Care Employee Operations Examiner Name Role Phone Elsewhere, Pcp Primary Care Provider Unavailabl e Encounter Details Date Type Department Care Team (Late st Contact Info) Description 02/26/2022 Orders Only [facility] [address] [place] [address] [facility], Provider, Screening Test Laboratory Social History Tobacco [...] place to sleep or slept in a group home (including now)? No 02/15/2022 Depression Answer Date [...] AM CDT Legal Sex Male 2:54 PM WRITER EDITOR Gender Identity Male 08/08/2020 8:57 AM WRITER EDITOR Sexual Orientation Straight 07/27/2020 8: 49 AM WRITER EDITOR documented as of this encounter Plan of Treatment Not on file documented as of this encounter Visit Diagnoses Diagnosis Screening Test Laboratory documented in this encounter Additional Health Concerns Infection Onset Date Last Indicated Resolved Time COVID19 Pending 02/26/2022 02/26/2022 02/26/2022 1 1:40 AM CDT COVID19 Pending 02/26/2022 02/26/202202/26/2022 1 :12 PM CDT COVID19 Pending 06/19/2022 06/19/2022 06/19/2022 1 0:27 AM WRITER EDITOR COVID19 Pending 06/19/2022 06/19/2022 06/19/2022 1 1:20 AM WRITER EDITOR COVID19 06/19/2022 06/19/2022 07/09/2022 5:18 AM WRITER EDITOR Assessment Noted Time PHQ-9 Depression Total Score: 0 01/27/20 9:25 AM CDT documented as of this encounter Care Teams Employee Operations Examiner Relationship Specialty Start Date End Date Elsewhere, Pcp PCP - General Internal Medicine 10/26/24 documented as of this encounter
== END 2024-12-26 11:00 | disposition home or self-care (01) ==
LOC: NPINS 10:59
PROVIDERS: PCP Student in an Organized Health Care Education/Training Program; Visit Provider Family Medicine
DX: E11.9 Type 2 diabetes mellitus without complications (principal)
CPT/HCPCS: 83036

== ENCOUNTER 2025-02-12 09:44 | Outpatient (CLI) | payer MEDICARE, BC, SELFPAY | END 2025-02-12 09:45 | disposition home or self-care (01) | LOC: AMB 02-15 11:23 | PROVIDERS: PCP Student in an Organized Health Care Education/Training Program; Visit Provider Emergency Medicine | DX: R42 Dizziness and giddiness (principal) | CPT/HCPCS: A0425; A0427 ==

== ENCOUNTER 2025-02-12 10:03 | Emergency (ER) | payer MEDICARE, BC, SELFPAY ==
[2025-02-12] VITALS (20 sets, daily range): BP systolic 138–172; BP diastolic 54–137; PULSE 54–61; RESP 10–20; TEMP 36.6; O2SAT 96–99; BMI 26.2
--- OUTSIDE RECORDS SUMMARY | 2025-02-12 10:04 | XMS_ITS ---
Author Name Auto Generated, Auto Generated Organization [facility] Functional Status No Results Mental Status No Results Allergies and Intolerances No Known Allergies Problems Active Concerns * Health care maintenance* Code: [id number] * Start Date: WedDec 25 10:09:00 EDT 2024 * End Date: * Text: * Dysuria* Code: [id number] * Start Date: WedSep 22 13:04:00 EDT 2024 * End Date: * Text: * Elevated hemoglobin A1c* Code: [id number] * Start Date: WedSep 22 13:05:00 EDT 2024 * End Date: * Text: * Type 2 diabetes mellitus without complication, without long-term current use of insulin* Code: [id number] * Start Date: WedDec 20 15:31:00 EDT 2024 * End Date: * Text: * Urinary incontinence, unspecified type* Code: [id number] * Start Date: WedDec 24 23:39:00 EDT 2024 * End Date: * Text: Reason for Referral
--- OUTSIDE RECORDS SUMMARY | 2025-02-12 10:05 | XMS_ITS | Clinical Summary ---
Author Organization [facility] Address [address] [place] [address] Care Team Providers Care Paper Machine Backtender Name Role Phone Audra Hunter MD Primary Care Provider + Allergies Active Allergy Reactions Criticality Noted Date Comments Bee Venom Protein (Honey Bee) Other - Describe In Comment Field Medium 12/08/2011 Swelling in the area of the sting Medications (u) PRILOSEC CAP 20MG CR 1 daily prn for infreq acidity 30 0 06/13/19 99 Active acetaminophen (TYLENOL EXTRA STRGTH) 500 mg tablet Take 500 mg by mouth every 6 hours if needed. Active losartan (COZAAR) 25 mg tabletIndications :Essential hypertension, benign Take 1 Tablet (25 mg) by mouth two times daily. 90 Tablet 3 03/10/20 24 Active latanoprost (XALATAN) 0.005 % ophthalmic solutionIndicatio ns:Pseudophakia,G laucoma, unspecified glaucoma type, unspecified laterality INSTILL 1 DROP IN BOTH EYES EVERY NIGHT 2.5 mL 11 07/03/20 24 Active Senna 8.6 mg tabletIndications :Constipation, acute TAKE 1 TABLET BY MOUTH TWICE DAILY 180 Tablet 11/14/19 25 Active atorvastatin (LIPITOR) 10 mg tabletIndications :Hyperlipidemia, unspecified hyperlipidemia type Take 1 Tablet (10 mg) by mouth once daily in the evening. 90 Tablet 01/22/20 25 Active donepeziL (ARICEPT) 5 mg tabletIndications :Neurocognitive disorder Take 1 Tablet (5 mg) by mouth at bedtime. 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 30 Tablet 02/10/20 25 Active donepeziL (ARICEPT) 5 mg tabletIndications :Neurocognitive disorder Take 1 Tablet (5 mg) by mouth at bedtime. 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 -ACT INIC 11/10/1999 NEOPLASM, MALIGNANT, PROSTATE- RAMIRO 5 RADICAL PROST05/09/1998 HYPERTENSION, BENIGN ESSENTI AL -DX/RX MINIMAL, FAMILIAL 03/25/1998 HYPERCHOLESTEROLEMIA, PURE -PRAVACHOL ; LIPI TOR 03/25/1998 URTICARIA NOS -IDEOPATHIC, INFREQUENT 03/25/1998 Encounters Date Type Department Care Team Description 02/07/2025 Refill [facility] [address] [place] [address] Selina Craft, DO Refill Request (Aspirin Enteric Coated) 01/18/2025 Refill [facility] [address] [place] [address] Selina Craft, DO Refill Request (Donepezil, Atorvastatin) from Last 3 Months Immunizations Immunization Administration Dates Next Due Td (Age >=7 Years) 05/06/1992 Family History Medical History Relation Name Comments Genetic Other 1 Father of NC age 68~Mother of pneumonia age 85 and senile demintia after 80 y/o~Relevant illness in sibling; 1/2 sister ETOH cirrhosis age 50; another 1/2 sister who was a twin age 70 from heart attack and also dx with colon cancer (dx at* Genetic Other 2 Father of NC age 68~Mother of pneumonia age 85 and [...] on file Legal Sex Male 5:22 AM SUPERVISOR PACKING ROOM Gender Identity Not on file Sexual Orientation Not on file Obstetrics History Last Filed Vital Signs Vital Sign Reading Time Taken Comments Blood Pressure 155/81 03/10/2024 9:52 AM CDT Pulse 54 03/10/2024 9:52 AM CDT Temperature 36.4 C (97.6 F) 05/31/1998 12:00 AM SUPERVISOR PACKING ROOM Respiratory Rate 16 05/17/1998 12:00 AM SUPERVISOR PACKING ROOM Oxygen Saturation 99% 03/10/2024 9:52 AM CDT Inhaled Oxygen Concentration - - Weight 67.2 kg (148 lb 3.2 oz) 03/10/2024 9:52 A M CDT Height 163 cm (5' 4.17) 03/10/2024 9:52 AM CDT Body Mass Index 25.3 03/10/2024 9:52 AM CDT Plan of Treatment Health Maintenance Due Date Last Done Comments Pneumococcal series for age 50+ (1 of 2 - PCV) 1959 Zoster (shingles) series for age 50+ (1 of 2) 1990 Tetanus booster 05/06/2002 05/06/1992 RSV vaccine for adults or (1 - 1-dose 75+ series) 2015 COVID-19 vaccine series ( season) 2024 04/12/2023, 04/06/2022, 10/21/2021, Additional history exists Influenza Vaccine (#1) 2025 BMI (ht and wt on same day) for age 18+ 03/10/2025 03/10/2024 Depression screening for age 12+ 03/10/2025 03/10/2024 Medicare Wellness for age 65+ 03/11/2025 03/10/2024 Hepatitis B series for 19+ Aged Out N o longer eligible based on patient's age to complete this topic Insurance MEDICARE PART B HB ONLY MEDICARE PB ONLY [facility] Advance Directives Documents on File Type Date Recorded Patient It Support Specialist Expl anation POLST 04/18/2024 Care Teams Paper Machine Backtender Relationship Specialty Start Date End Date Audra Hunter MD [address] [address] PCP - General Family Practice 10/19/24
--- OUTSIDE RECORDS SUMMARY | 2025-02-12 10:05 | XMS_ITS | Clinical Summary ---
Author Organization [facility] Address [address] [place] [address] Care Team Providers Care Instant Powder Supervisor Name Role Phone Elsewhere, Pcp Primary Care Provider Unavailabl e Source Comments Patient records contain information from all sites at [facility]. For routine questions regarding patient records, call [phone] during business hours, M-F 8:00 AM - 5:00 PM Central Time. Record requests for emergency care only can be directed to [phone] at any time.[facility] Allergies Active Allergy Reactions Criticality Noted Date Comments Pollen Extracts Cough 12/15/2017 Medications * This document contains information received from the source organization and may not represent a complete record from that organization. acetaminophen (TYLENOL) 500 mg tablet Take 500 mg by mouth every 6 (six) hours as needed. Active vit C,Q-Kz-mrcqj-pippa tein-zeaxan (PreserVision AREDS-2) 250-90-40-1 mg per capsule [...] Problems Problem Noted Date Diagnosed Date Metabolizer [id number] Rapid 09/07/20232023 Overview (09/07/2023): With prodrugs that are activated by WPR1G28, such as clopidogrel, increased drug activation may [...] angiography) without stenting - Coronary angiography at [place], [place] demonstrated obstructive disease of 1st [...] Bilateral 11/08/2017 Atherosclerotic Heart Diseas e Of [place] Coronary Artery Without Angina Pectoris 04/30/2017 Overview [...] Plan: Controlled Continue lovastatin 40 mg nightly Immunizations Immunization Administration Dates Next Due HZV [...] drink = 0.6 oz pur e alcohol) [facility] Utilities Answer Date Recorded In the past 12 months has e electric, gas, oil, or water [employer] threatened to shut off services in your [...] your living situation today? I have a [facility] place to live 09/04/2023 Education Answer Date Recorded What is the highest level of school you have completed or the highest degree you have received? Bachelor's degree (e.g., BA, AB, BS) 02/15/2022 Sex and Gender Information Value Date Recorded Sex Assigned at Male 03/06/2021 10:40 AM CDT Legal Sex Male 2:54 PM BUSINESS CONTROL SPECIALIST Gender Identity Male 08/08/2020 8:57 AM BUSINESS CONTROL SPECIALIST Sexual Orientation Straight 07/27/2020 8: 49 AM BUSINESS CONTROL SPECIALIST Last Filed Vital Signs Vital Sign Reading Time Taken Comments Blood Pressure 129/78 09/08/2023 8:15 AM BUSINESS CONTROL SPECIALIST Pulse 56 09/08/2023 8:15 AM BUSINESS CONTROL SPECIALIST Temperature 36.8 C (98.2 F) 03/25/2023 11:18 AM CDT Respiratory Rate 16 09/07/2022 9:10 AM BUSINESS CONTROL SPECIALIST Oxygen Saturation 97% 09/08/2023 7:51 AM BUSINESS CONTROL SPECIALIST Inhaled Oxygen Concentration - - Weight 65 kg (143 lb 4.8 oz) 09/08/2023 7:51 AM BUSINESS CONTROL SPECIALIST Height 166 cm (5' 5.35) 09/08/2023 7:51 AM BUSINESS CONTROL SPECIALIST Body Mass Index 23.59 09/08/2023 7:51 AM BUSINESS CONTROL SPECIALIST Plan of Treatment Health Maintenance Due Date Last Done Comments COVID-19 Vaccine ( season) 2024 04/12/2023, 04/06/2022, 10/21/2021, Additional history exists Depression Screening (Annual PHQ-2) 07/05/2024 Fall Risk Screen (Annual) 07/05/2024 Creatinine Level (Kidney Function Test) 09/02/2024 09/03/2023, 08/04/2023, 02/01/2023, Additional history exists Potassium Level 09/02/2024 09/03/2023, 07/07, 02/01/2023, Additional history exists Sodium Level 09/02/2024 09/03/2023, 07/07, 02/01/2023, Additional history exists Office Visit for Blood Pressure Check / Re-check 09/07/2024 09/08/2023 Influenza Vaccine (#1) 2025 , 04/06/2022, 04/03/2021, Additional history exists DTaP,Tdap,and Td Vaccines (4 - Td or [...] METABOLIC PANEL, S/P Routine 09/03/2023 11:59 AM BUSINESS CONTROL SPECIALIST Coronary Artery Disease Without Angina Pectoris Hypertension Essential Primary from Last 3 Months or Most Recently Relevant to Health Maintenance Results * Basic Metabolic Panel (09/03/2023 11:59 AM BUSINESS CONTROL SPECIALIST) Potassium, P 4.3 3.6 - 5.2 mmol/L 09/03/2023 12:52 PM BUSINESS CONTROL SPECIALIST AUST Sodium, P 142 135 - 145 mmol/L 09/03/2023 12:52 PM BUSINESS CONTROL SPECIALIST AUST Chloride, P 105 98 - 107 mmol/L 09/03/2023 12:52 PM BUSINESS CONTROL SPECIALIST AUST Bicarbonate, P 25 22 - 29 mmol/L 09/03/2023 12:52 PM BUSINESS CONTROL SPECIALIST AUST Anion Gap, P 12 7 - 15 09/03/2023 12:52 PM BUSINESS CONTROL SPECIALIST AUST BUN (Blood Urea Nitrogen), P 22 8 - 24 mg/dL 09/03/2023 12:52 PM BUSINESS CONTROL SPECIALIST AUST Creatinine 1.15 0.74 - 1.35 mg/dL 09/03/2023 12:52 PM BUSINESS CONTROL SPECIALIST AUST Estimated GFR (eGFR) 63 >=60 mL/min/BSA 09/03/2023 12:52 PM BUSINESS CONTROL SPECIALIST AUST Comment: Estimated GFR calculated using the 2020 CKD_EPI creatinine equation. Calcium, Total, P 9.7 8.8 - 10.2 mg/dL 09/03/2023 12:52 PM BUSINESS CONTROL SPECIALIST AUST Glucose, P 127 70 - 140 mg/dL 09/03/2023 12:52 PM BUSINESS CONTROL SPECIALIST AUST Blood (Blood, Venous) 09/03/2023 11:59 AM BUSINESS CONTROL SPECIALIST 09/03/2023 12:06 PM BUSINESS CONTROL SPECIALIST Sanjeev Allen M.D. LAB BLOOD ADD-ON Final Re sult [facility] [address] [place] [address], [facility] - [facility] [address] [place] [address] from Last 3 Months or Most Recently Relevant to Health Maintenance Insurance [facility] MEDICARE Advance Directives For more information, please contact: [phone] Documents on File Type Date Recorded Patient Aerologist Expl anation Advance Directives 01/14/2023 3:23 PM Ary Jaclyn David Yanelischris BentleyKaylie Nunez HCPOA/ADVOCATE/AGENT/ INTERNET MARKETING MANAGER/SURROG ATE Advance Directives 09/01/2021 2:35 PM HCPO A/ADVOCATE/AGENT/ INTERNET MARKETING MANAGER/SURROG ATE Healthcare Agents on File Name Relationship Healthcare Agent Relationship Communication Ary Bentley Spouse Health Care Agent [phone] (Home) [email or web address] Greg Bentley Unknown Health Care Agent Kaylie Nunez Relative Health Care Agent [email or web address][email or web address] Care Teams Instant Powder Supervisor Relationship Specialty Start Date End Date Elsewhere, Pcp PCP - General Internal Medicine 10/26/24
--- OUTSIDE RECORDS SUMMARY | 2025-02-12 10:06 | XMS_ITS | Encounter Summary ---
Author Organization [facility] Address [address] [place] [address] Care Team Providers Care Electronics Supervisor Name Role Phone Elsewhere, Pcp Primary Care Provider Unavailabl e Encounter Details Date Type Department Care Team (Late st Contact Info) Description 02/26/2022 Orders Only RST [facility]CM [address] [place] [address] [facility], Provider, Screening Test Laboratory Social History [...] place to sleep or slept in a nursing home (including now)? No 02/15/2022 Depression Answer [...] AM CDT Legal Sex Male 2:54 PM VOCATIONAL EXAMINER Gender Identity Male 08/08/2020 8:57 AM VOCATIONAL EXAMINER Sexual Orientation Straight 07/27/2020 8: 49 AM VOCATIONAL EXAMINER documented as of this encounter Plan of Treatment Not on file documented as of this encounter Visit Diagnoses Diagnosis Screening Test Laboratory documented in this encounter Additional Health Concerns Infection Onset Date Last Indicated Resolved Time COVID19 Pending 02/26/2022 02/26/2022 02/26/2022 1 1:40 AM CDT COVID19 Pending 02/26/2022 02/26/202202/26/2022 1 :12 PM CDT COVID19 Pending 06/19/2022 06/19/2022 06/19/2022 1 0:27 AM VOCATIONAL EXAMINER COVID19 Pending 06/19/2022 06/19/2022 06/19/2022 1 1:20 AM VOCATIONAL EXAMINER COVID19 06/19/2022 06/19/2022 07/09/2022 5:18 AM VOCATIONAL EXAMINER Assessment Noted Time PHQ-9 Depression Total Score: 0 01/27/20 9:25 AM CDT documented as of this encounter Care Teams Electronics Supervisor Relationship Specialty Start Date End Date Elsewhere, Pcp PCP - General Internal Medicine 10/26/24 documented as of this encounter
--- NOTE | 2025-02-12 10:10 | ED_ITS ---
HPI - Dizziness General Time Seen by Provider: 10:04 Date Seen: 02/12/25 Chief Complaint: Dizziness/Vertigo Stated Complaint: dizziness and weakness Time Seen by Provider: 02/12/25 10:04 Source: patient, EMS and RN notes reviewed Mode of arrival: EMS Limitations: no limitations History of Present Illness HPI Narrative: This 84-year-old male was brought in by EMS from [facility] where he resides. He woke in the middle of the night, thinks it may have been about 4-5 a.m., to go to the bathroom. He states he had to hang onto the wall. He describes it as a swirling sensation. States he has had lightheadedness before where there was a sense like he might pass out but this was different. He called the dizziness in described it like a swirling, confirmed spinning would be another feel. He states his arms and legs did seem to work, noted no blurry vision or double vision. Had to hang onto the wall or he feels he would have fallen. He has had some tingling in his legs intermittently for the last 2 months. EMS reportedly did orthostatics and reported to us that they were fine. Patient states right now lying in bed that he is not feeling this sensation. Does think he would probably be able to get up and walk. He noted no chest pain, no palpitations or irregular heartbeat. He has not had this sensation before reportedly. He notes no ringing of his ears, no change in hearing. His current medications are p.r.n. Tylenol, Aricept 5 mg, 81 mg aspirin, atorvastatin 10 mg, latanoprost eyedrops, losartan 25 mg, melatonin 1 mg, Prilosec OTC 20 mg, senna 8.6 b.i.d., trazodone 50 at bedtime, metformin extended-release 500 mg. His past medical and surgical history are unspecified symptoms and signs involving cognitive functions, constipation, insomnia, bradycardia, dizziness and getting this, macular degeneration, hypertensive chronic kidney disease, urinary retention, stress incontinence, history of skin cancer, glaucoma, history of prostate cancer, atherosclerotic heart disease of [place] coronary artery, hypertension, hyperlipidemia, osteoarthritis right knee, actinic keratoses. Pollen allergy. He is DNR. 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 Hemoglobin A1c on December 26 was 5.6%. PSA on December 12 was less than 0.06, undetectable. Related Data Home Medications ?Medication ?Instructions ?Recorded ?Confirmed atorvastatin .ROUTE 02/29/24 losartan .ROUTE 02/29/24 metoprolol succinate PO 02/29/24 aspirin 81 mg tablet,delayed 81 mg PO DAILY 02/12/25 0 02/12/25 release (Adult Aspirin Regimen) atorvastatin 10 mg tablet 10 mg PO DAILY 02/12/2502/02 donepezil 5 mg tablet 5 mg PO DAILY 02/12/2502/12 latanoprost 0.005 % eye drops drp ophthalmic (eye) 05/29 losartan 25 mg tablet 25 mg PO BID 02/12/25 metformin 500 mg tablet,extended 500 mg PO DAILY 02/1202/12/25 release 24 hr trazodone 50 mg tablet 25 mg PO QPM PRN 02/12/25 Previous Rx's ?Medication ?Instructions ?Recorded clopidogrel 75 mg tablet (Plavix) 75 mg PO DAILY #20 t abs 02/12/25 Allergies Allergy/AdvReac Type Severity Reaction Status Date / Time No Known Drug Allergies Allergy Verified 02/29/24 09:42 Review of Systems Status of ROS: Reports: 6 or more systems reviewed and unremarkable except as noted in History and below PFSH PFS Social History Smoking Status: Former smoker How often do you have a drink containing alcohol: 2-4 times a month How often do you have six or more drinks on one occasion: Never AUDIT-C Alcohol total score: 2 Non-prescribed substance use: denies use service: No Exam Const: Vital Signs, click to edit/add: Vital Signs - 24 hr 02/12/25 10:07 02/12/25 10:39 02/12/25 10:41 Temperature 97.9 F Pulse Rate 57 L Pulse Rate [Pulse Oximeter] 59 L Respiratory Rate 18 Blood Pressure 141/63 H Blood Pressure [Le ft Upper Arm] 142/62 H Pulse Oximetry 96 97 97 Oxygen Delivery Me thod Room Air 02/12/25 11:00 02/12/25 11:03 02/12/25 11:15 Temperature Pulse Rate 59 L 57 L 59 L Pulse Rate [Pulse Oximeter] Respiratory Rate 15 14 Blood Pressure 138/54 L Blood Pressure [Le ft Upper Arm] Pulse Oximetry 96 96 [facility] 02[facility] 11:30 02/12/25 12:38 02/12/25 12:39 Temperature Pulse Rate 59 L 57 L 54 L Pulse Rate [Pulse Oximeter] Respiratory Rate 12 Blood Pressure 162/71 H Blood Pressure [Le ft Upper Arm] Pulse Oximetry 97 98 99 [facility] 02/12/25 12:45 02/12/25 13:00 02/12/25 13:15 Temperature Pulse Rate 56 L 57 L 60 Pulse Rate [Pulse Oximeter] Respiratory Rate 13 20 Blood Pressure Blood Pressure [Le ft Upper Arm] Pulse Oximetry 97 98 97 [facility] 02/12/25 13:21 02/12/25 13:30 02/12/25 13:45 Temperature Pulse Rate 60 57 L 58 L Pulse Rate [Pulse Oximeter] Respiratory Rate 15 16 10 L Blood Pressure 164/137 H Blood Pressure [Le ft Upper Arm] Pulse Oximetry 98 98 98 [facility] 02/12/25 14:00 02/12/25 14:15 02/12/25 14:30 Temperature Pulse Rate 59 L 58 L 58 L Pulse Rate [Pulse Oximeter] Respiratory Rate 19 10 L 15 Blood Pressure Blood Pressure [Le ft Upper Arm] Pulse Oximetry 98 98 97 [facility] 02/12/25 14:36 02/12/25 14:47 Temperature Pulse Rate 61 Pulse Rate [Pulse Oximeter] Respiratory Rate 16 14 Blood Pressure 158/76 H 172/84 H Blood Pressure [Le ft Upper Arm] Pulse Oximetry 97 [facility] This 84-year-old male is alert, interactive, no apparent distress. Is lying in bed, alert and conversive. Pupils are equal round reactive, sclera clear, extraocular muscles intact, note no significant nystagmus at this time. Symmetrical facial function, speech is normal. Visual light on confrontation intact. Strength is 5/5 and symmetric throughout hands, upper extremities, feet and lower extremities. Can straight leg lift and keep the leg off the bed for 3 seconds on both sides. He has normal light touch sensation throughout his extremities. He has normal finger to nose but has slight finger tremor is in his right hand with outstretched arms, otherwise note no tremors. CV regular rate and rhythm, no murmur, normal S1-S2, no S3-S4. Lungs are clear, good air entry, no wheezing or crackles, no tachypnea, no accessory muscle use. Abdomen is soft, nontender, nondistended, organomegaly, rebound or guarding, no masses. He has no lower extremity edema. Documenting provider has reviewed patient's vital signs: yes Course Course ED Course: This 84-year-old male is given history that seems to be consistent with vertigo. We will do a head CT, will talk to Neurology before doing any further imaging. He does seem to be neurologically intact at this time with an NIH of 0 but have not attempted to ambulate yet. He is on an 81 mg aspirin, will rule out brain bleeds, this certainly could be ischemic cerebrovascular disease or peripheral vertigo. Difficult to say at this time. Will get an EKG, put him on pulse oximetry and cardiac monitoring to rule out arrhythmia. Heart rate sounds regular at this time. Will get full complement of labs including coags in case we would be doing any type of blood thinner. He is out of range for any lytic therapy and given his presentation, doubt that he would require anything of that nature. Again, will be talking to Neurology. Will give full complement of labs as stated including troponin as well as chemistries, TSH. Reevaluation(s) Time of Reevaluation #1: 11:01 Reevaluation #1: Patient's son is here now, have reviewed the case and plan for workup with him. He understands that we will be doing CT angiography an MR brain to rule out ischemic disease. We have discussed the difficulty in differentiating central versus peripheral vertigo based on clinical exam alone and his dad certainly has significant risk factors. We did review that there is CT evidence probable prior stroke which they were not aware of. We did review that I frequently fine CT or MR imaging of prior strokes that people are not even aware of, this is not necessarily uncommon. It is important to know as if he has had a prior stroke though he is at risk for subsequent ischemic disease. Time of Reevaluation #2: 14:34 Reevaluation #2: Did talk to patient and his son regarding the MRI findings. Patient obviously has had prior cerebral ischemic disease. We also reviewed that his cell count lines are somewhat diminished, all 3 lines are now. This brings up concerns about dysfunction of his bone marrow, possible things like myelodysplastic syndrome developing. If that is potentially a problem for him, he certainly cou ld be at increase risk of bleeding from dual anti-platelet agents. We are going to get him up and walk, see how he does and see how he feels. If his symptoms have resolved, he can potentially go home on his 81 mg aspirin and a Zio patch to look for arrhythmia. We did discuss if he has no arrhythmia it would be an indication for anticoagulation to prevent blood clots. He asks about them checking him in the morning, reviewed with him that there checking his glucose. Those values of seemed to be fine in his paperwork that was sent. We did discuss having him see hematology/oncology which potentially can be done here, the just need in order. I would recommend being seen for this. As far as doing dual anti-platelet agents for this episode of vertigo potentially being a TIA, it is not necessarily clear what to do. Time of Reevaluation #3: 15:11 Reevaluation #3: Patient did ambulate, did not feel as bad as this morning, states he felt a little woozy but he felt if he could keep going he would of been back to baseline. He feels safe to go home. His son would prefer him go on the 20/1 days of Plavix, understands the risk of bleeding. Will give him his 1st dose here, will send the other 20 tablets to Pharmacy for him. He will take this daily with his 81 mg aspirin as a certainly could have been a TIA this morning. Consultations Consultation #1: Spoke with neurologist Dr. Leonardo from [place]. Reviewed this patient's case. Given probable prior infarct on head CT but no acute changes today, he does think we should proceed with presuming this is a TIA. Patient definitely had vertigo. We are going to proceed with a CTA of head and neck, MRI brain noncontrast. Will talk to Dr. Leonardo once these results are back. Time: 10:38 Consultation #2: Did speak with Dr. Leonardo again. We have reviewed the CTA imaging and the MR brain imaging. He has had prior strokes. He also sees the cell lines being down on his CBC and the mild thrombocytopenia. He states this is difficult because dementia may be limiting her history here. Patient is baseline on an 81 mg aspirin. He does not have as extensive vascular changes on his CTA that he thought we might see. There lot of nonspecific white matter changes. He wonders about patient doing a Zio patch. As far as doing 21 days of dual platelet agents with aspirin and Plavix, he agrees it is very unclear what to do . If they opt to want this, he thinks it is fine but also understands the risk of doing the dual antiplatelets potentially. I will talk to the son, see what he would like to do. We do know that this is not a new stroke at this time but certainly still has the potential to have been a TIA. Time: 13:20 Vital Signs Vital signs: Initial Vital Signs Temperature 97.9 F 02/12/25 10:07 Temperature Source Temporal Artery Scan 02/12/25 10:07 Pulse Rate 59 L 02/12/25 10:07 Respiratory Rate 18 02/12/25 10:07 Blood Pressure 142/62 H 02/12/25 10:07 Blood Pressure Mean 88 02/12/25 10:07 Blood Pressure Position Supine 02/12/25 10:07 Pulse Oximetry 96 02/12/25 10:07 Oxygen Delivery Method Room Air 02/12/25 10:07 Vital Signs Temperature 97.9 F 02/12/25 10:07 Pulse Rate 59 L 02/12/25 10:07 Respiratory Rate 18 02/12/25 10:07 Blood Pressure 142/62 H 02/12/25 10:07 Pulse Oximetry 96 02/12/25 10:07 Oxygen Delivery Method Room Air 02/12/25 10:07 Temperature 97.9 F 02/12/25 10:07 Pulse Rate 61 02/12/25 14:47 Respiratory Rate 14 02/12/25 14:47 Blood Pressure 172/84 H 02/12/25 14:47 Pulse Oximetry 97 02/12/25 14:47 Oxygen Delivery Method Room Air 02/12/25 10:07 MDM - Dizziness Lab Data Attestation: I reviewed the patient's lab results. Labs: Lab Results 02/12/25 02/12/25 Range/Units 10:30 12:35 WBC 3.45 L (4.50-11.00) K/uL RBC 4.14 L (4.30-5.90) m/uL Hgb 12.5 L (13.5-17.5) gm/dL Hct 38.2 (37.0-53.0) % MCV 92 (80-100) fL MCH 30 (26-34) pg MCHC 33 (32-36) gm/dL RDW Coeff of Laura 12.8 (11.5-15.5) % Plt Count 126 L (140-440) K/uL Neut % (Auto) 47.3 (42.0-72.0) % Lymph % (Auto) 31.9 (20-44) % [place] % (Auto) 16.5 H (0.0-11.0) % Eos % (Auto) 1.4 (0.0-7.0) % Baso % (Auto) 0.3 (0.0-3.0) % Neut # (Auto) 1.60 L (1.7-7.0) K/uL Lymph # (Auto) 1.10 (0.90-2.90) K/uL [place] # (Auto) 0.60 (0.00-0.90) K/UL Eos # (Auto) 0.00 (0.00-0.50) K/uL Baso # (Auto) 0.00 (0.00-0.30) K/uL Abs Immat Gran (auto) 0.10 (0.00-0.30) K/uL Imm/Tot Granulo (auto) 2.6 % INR 0.95 (0.91-1.10) APTT 28 (23-33) Seconds Sodium 138 (135-149) mmol/L Potassium 4.7 (3.6-5.1) mmol/L Chloride 104 (96-114) mmol/L Carbon Dioxide 26 (20-32) mmol/L Anion Gap 8 (7-15) mEq/L BUN 21 (7-30) mg/dL Creatinine 1.3 (0.5-1.5) mg/dL Estimated Creat Clear 36.79 Estimated GFR 54 ml/min Glucose 112 (60-115) mg/dL Lactate 1.5 (0.5-1.9) mmol/L Calcium 9.4 (8.4-10.6) mg/dL Total Bilirubin 0.5 (0.1-1.5) mg/dL AST 27 (12-35) U/L ALT 20 (4-50) U/L Alkaline Phosphatase 63 (40-150) U/L Troponin I < 0.01 (0.01-0.04) ng/mL NT-Pro-B Natriuret Pep 108 (See Note) pg/mL Total Protein 7.2 (6.0-8.3) g/dL Albumin 4.5 (3.3-5.0) g/dL TSH 0.900 (0.270-4.200) uIU/mL Urine Color Yellow (Yellow) Urine Appearance Clear (Clear) Urine pH 7.0 (5.0-8.5) Ur Specific [place] 1.010 (1.000-1.030) Urine Protein Negative (Negative) Urine Glucose (UA) Negative (Negative) Urine Ketones Negative (Negative) Urine Blood Negative (Negative) Urine Nitrite Negative (Negative) Urine Bilirubin Negative (Negative) Urine Urobilinogen 0.2 (0.2-1.0) Ur Leukocyte Esterase Negative (Negative) Imaging Data CT scan - head: Attestation: I have reviewed the pertinent imaging results. Radiologist's impression: Patient: [facility] Facility:?[facility] Patient ID:?[id number] Site Patient ID:?[id number]. Site :?[id number] Study:?CT-Head WO-02/12/2025 10:25:35 AM Ordering Physician:Tsering Hernández Final Report: INDICATION: Vertigo TECHNIQUE: Head CT without contrast. COMPARISON: Brain MRI 04/03/2024 FINDINGS: CSF spaces: Within normal limits for age. Brain parenchyma and extra-axial spaces: There are nonspecific low attenuation white matter changes consistent with chronic microvascular disease. Similar encephalomalacia within the right frontal operculum compared to prior MRI given differences in technique. No sign of mass, hemorrhage, or midline shift. Skull base and calvarium: The visualized paranasal sinuses and mastoid air cells demonstrate no acute or significant findings. The visualized orbits are grossly unremarkable. No acute skull fractures. Chronic deformity of the right temporal bone, possibly sequela of prior injury. Prominent bilateral vertebral artery calcifications IMPRESSION: 1. No acute findings 2. Similar right frontal operculum encephalomalacia, likely sequela of prior infarct. 3. Prominent bilateral vertebral artery calcifications Please note that all CT scans at this facility use dose modulation, iterative reconstruction, and/or weight-based dosing when appropriate to reduce radiation dose to as low as reasonably achievable. Dictated by Ramona Moreno MD @ 02/12/2025 10:40:10 AM (Electronic Signature) CT- Other: Attestation: I have reviewed the pertinent imaging results. Radiologist's impression: Patient: [facility] Facility:?[facility] Patient ID:?[id number] Site Patient ID:?[id number]. Site :?[id number] Study:?CT-Head Angio W/ 95CC [id number]/11/2025 11:53:20 AM Ordering Physician:?Yaya Hernández Preliminary Report: Findings: INTRACRANIAL ANGIOGRAM: Anterior circulation: No flow-limiting stenosis or aneurysm. Moderate calcification of the cavernous portions of the bilateral internal carotid arteries. Posterior circulation: No flow-limiting stenosis or aneurysm. Moderate calcification of the V4 segments of the bilateral vertebral arteries. Dural venous sinuses: Patent. Additional comment: None. EXTRACRANIAL ANGIOGRAM: Proximal great vessels: No flow-limiting stenosis or dissection. Cervical vessels: No flow-limiting stenosis or dissection. Additional comment: None. NECK: Soft tissues: Normal. Bones: Moderate degenerative changes of the visualized spine. Lung apices: Clear. Additional comment: None. Impression: No flow-limiting stenosis, occlusion or aneurysm in the intracranial and extracranial circulations. Dictated by Jun Gates MD @ 02/12/2025 12:52:17 PM Read by:?Jun Gates MD @02/12/2025 12:52:37 PM MRI - head: Attestation: I have reviewed the pertinent imaging results. Radiologist's impression: Patient: [facility] Facility:?[facility] Patient ID:?[id number] Site Patient ID:?[id number]. Site :?1940 Study:?MRI-Head WO-02/12/2025 12:17:13 PM Ordering Physician:Tsering Hernández Final Report: INDICATION: Vertigo. TECHNIQUE: Multisequence multiplanar MRI of the brain without the use of intravenous contrast. COMPARISON: None available. FINDINGS: No evidence of acute ischemia. Scattered foci of T2 prolongation within the supratentorial white matter, nonspecific, but typical of mild chronic small vessel ischemic changes. 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 Additional tiny chronic lacunar infarct within the right cerebellum. Mild diffuse parenchymal volume loss. The ventricles are proportional to the sulci. Flow voids of the larger intracranial arteries are preserved. Normal calvarial bone marrow signal intensity. Bilateral pseudophakia. The paranasal sinuses and mastoid air cells are predominantly clear. IMPRESSION: 1. No acute intracranial abnormality. Specifically, no evidence of acute ischemia. 2. Mild diffuse parenchymal volume loss and chronic small-vessel ischemic changes. 3. 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 4. Additional tiny chronic lacunar type infarct within the left cerebellum. Dictated by Casey Nolan MD @ 02/12/2025 12:37:35 PM (Electronic Signature) ECG Data Attestation: I personally reviewed and interpreted this ECG as follows: (Sinus rhythm with sinus arrhythmia, 60 beats per minute. No ischemic change, no infarct.) ECG interpretation date: 02/12/25 ECG interpretation time: 10:38 Discharge Plan Discharge Clinical Impression: Vertigo, Abnormal CBC Patient Disposition: Home, Self-Care Condition: Stable Instructions: Vertigo (ED) Additional Instructions: Your vertigo episode could potentially have been a TIA this morning. There is no evidence of new stroke on your CT or MR imaging. He certainly have risk factors for ischemic disease of the brain vessels which does include prior history of unknown strokes based on your MR imaging of your brain. You will need to stand 81 mg aspirin daily. We will have you take Plavix 75 mg daily for 21 days, you received your 1st dose in the ED today. Your CBC has started to show all 3 cell lines being mildly diminished including platelets. There could be a theoretical increased risk of bleeding being both on aspirin and the Plavix. It is recommended that the primary care team at [facility] refer you to Hematology/Oncology for further evaluation and potential workup of your CBC, you could be developing bone marrow problems. Those services can be consulted here at [facility]. Your primary team can refer you to neurology for further evaluation and management if needed. Orders: Plavix 75 mg daily for 20 days, start 02/13/2025. Continue 81 mg aspirin indefinitely unless contraindications develop. Recommend hematology oncology referral for abnormal CBC and concern for bone marrow issues. Activity Level: Activity as Tolerated Prescriptions: New clopidogrel [Plavix] 75 mg tablet 75 mg PO DAILY Qty: 20 0RF No Action metoprolol succinate PO losartan .ROUTE atorvastatin .ROUTE donepezil 5 mg tablet 5 mg PO DAILY aspirin [Adult Aspirin Regimen] 81 mg tablet,delayed release (DR/EC) 81 mg PO DAILY latanoprost 0.005 % drops ophthalmic (eye) trazodone 50 mg tablet 25 mg PO QPM PRN atorvastatin 10 mg tablet 10 mg PO DAILY losartan 25 mg tablet 25 mg PO BID metformin 500 mg tablet extended release 24 hr 500 mg PO DAILY Follow Up/Referrals: ALLI GOOD DO [Primary Care Provider, Family Practice] Stand Alone Forms: [facility] Info Instructions
--- NOTE | 2025-02-12 10:11 | CRLHL7_ITS ---
For Patients: As a result of the Cures Act, medical imaging exams and procedure reports are released immediately into your electronic medical record. You may view this report before your referring provider. If you have questions, please contact your health care provider. INDICATION: Vertigo TECHNIQUE: Head CT without contrast. COMPARISON: Brain MRI 04/03/2024 FINDINGS: CSF spaces: Within normal limits for age. Brain parenchyma and extra-axial spaces: There are nonspecific low attenuation white matter changes consistent with chronic microvascular disease. Similar encephalomalacia within the right frontal operculum compared to prior MRI given differences in technique. No sign of mass, hemorrhage, or midline shift. Skull base and calvarium: The visualized paranasal sinuses and mastoid air cells demonstrate no acute or significant findings. The visualized orbits are grossly unremarkable. No acute skull fractures. Chronic deformity of the right temporal bone, possibly sequela of prior injury. Prominent bilateral vertebral artery calcifications IMPRESSION: 1. No acute findings 2. Similar right frontal operculum encephalomalacia, likely sequela of prior infarct. 3. Prominent bilateral vertebral artery calcifications Please note that all CT scans at this facility use dose modulation, iterative reconstruction, and/or weight-based dosing when appropriate to reduce radiation dose to as low as reasonably achievable. Dictated by Ramona Moreno MD @ 02/12/2025 10:40:10 AM (Electronically Signed)
[2025-02-12 10:36] LABS: Lactate* 1.5 mmol/L (0.5-1.9)
--- NOTE | 2025-02-12 10:42 | CRLHL7_ITS ---
For Patients: As a result of the Century Cures Act, medical imaging exams and procedure reports are released immediately into your electronic medical record. You may view this report before your referring provider. If you have questions, please contact your health care provider. INDICATION: Vertigo. TECHNIQUE: Multisequence multiplanar MRI of the brain without the use of intravenous contrast. COMPARISON: None available. FINDINGS: No evidence of acute ischemia. Scattered foci of T2 prolongation within the supratentorial white matter, nonspecific, but typical of mild chronic small vessel ischemic changes. 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 Additional tiny chronic lacunar infarct within the right cerebellum. Mild diffuse parenchymal volume loss. The ventricles are proportional to the sulci. Flow voids of the larger intracranial arteries are preserved. Normal calvarial bone marrow signal intensity. Bilateral pseudophakia. The paranasal sinuses and mastoid air cells are predominantly clear. IMPRESSION: 1. No acute intracranial abnormality. Specifically, no evidence of acute ischemia. 2. Mild diffuse parenchymal volume loss and chronic small-vessel ischemic changes. 3. 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 4. Additional tiny chronic lacunar type infarct within the left cerebellum. Dictated by Casey Nolan MD @ 02/12/2025 12:37:35 PM (Electronically Signed)
--- NOTE | 2025-02-12 10:42 | CRLHL7_ITS ---
For Patients: As a result of the Century Cures Act, medical imaging exams and procedure reports are released immediately into your electronic medical record. You may view this report before your referring provider. If you have questions, please contact your health care provider. INDICATION: Vertigo. TECHNIQUE: CTA head using intravenous contrast administration with bolus tracking, 3D angiographic rendering using maximum intensity projection (MIP) and images permanently archived. CTA neck using intravenous contrast administration with bolus tracking, 3D angiographic rendering using maximum intensity projection (MIP) and images permanently archived. FINDINGS: CTA head: There is scattered intracranial atherosclerotic disease. There is normal opacification of the intracranial vasculature. There is no large vessel occlusion or significant intracranial stenosis. No aneurysm is identified. CTA neck: There is carotid atherosclerosis bilaterally. There is no significant carotid artery stenosis or dissection. There is no significant vertebral artery stenosis or dissection. Degenerative changes are noted in the cervical spine. IMPRESSION: No acute intracranial abnormality at CTA. No significant carotid or vertebral artery stenosis or dissection. Please note that all CT scans at this facility use dose modulation, iterative reconstruction, and/or weight-based dosing when appropriate to reduce radiation dose to as low as reasonably achievable. Dictated by Boyd Kumar MD @ 02/12/2025 2:53:07 PM (Electronic Signature) SP/Dictated by: Boyd Kumar MD @ 02/12/2025 2:53:00 PM (Electronically Signed)
[2025-02-12 10:46] LABS: Hematocrit 38.2 % (37.0-53.0); Hemoglobin* 12.5 gm/dL (13.5-17.5); Immature Granulocytes Pct Auto 2.6 %; Lymphocytes Absolute Auto 1.10 K/uL (0.90-2.90); Mean Corpuscular HGB Conc 33 gm/dL (32-36); Mean Corpuscular Hemoglobin 30 pg (26-34); Mean Corpuscular Volume 92 fL (80-100); RDW Coefficient of Variation % 12.8 % (11.5-15.5); Red Blood Count 4.14 m/uL (4.30-5.90); White Blood Count* 3.45 K/uL (4.50-11.00)
[2025-02-12 10:50] LABS: Immature Granulocytes Abs Auto 0.10 K/uL (0.00-0.30); Slide Review Reflex No
[2025-02-12 11:00] LABS: Chloride* 104 mmol/L (96-114)
[2025-02-12 11:01] LABS: Albumin* 4.5 g/dL (3.3-5.0); Potassium* 4.7 mmol/L (3.6-5.1); Sodium* 138 mmol/L (135-149)
[2025-02-12 11:03] LABS: Blood Urea Nitrogen* 21 mg/dL (7-30); Creatinine* 1.3 mg/dL (0.5-1.5); Est. Creatinine Clearance* 36.79; Estimated Glomerular Filt Rate 54 ml/min
[2025-02-12 11:04] LABS: Alanine Aminotransferase* 20 U/L (4-50); Alkaline Phosphatase* 63 U/L (40-150); Anion Gap 8 mEq/L (7-15); Aspartate Amino Transferase* 27 U/L (12-35); Bilirubin Total* 0.5 mg/dL (0.1-1.5); Calcium* 9.4 mg/dL (8.4-10.6); Carbon Dioxide* 26 mmol/L (20-32); Glucose* 112 mg/dL (60-115); Total Protein* 7.2 g/dL (6.0-8.3)
[2025-02-12 11:06] LABS: INR 0.95 (0.91-1.10); Prothrombin Time 13.4 Seconds
[2025-02-12 11:43] LABS: NT Pro B Type NatriureticPept* 108 pg/mL (See Note)
[2025-02-12 12:01] LABS: TSH With Reflex to FT4* 0.900 uIU/mL (0.270-4.200)
[2025-02-12 12:40] LABS: Appearance Urine Clear (Clear)
[2025-02-12] MEDS: CLOPIDOGREL 75 MG TABLET PO (15:40)
== END 2025-02-12 16:23 | disposition home or self-care (01) ==
PROVIDERS: Emergency Provider Family Medicine; PCP Student in an Organized Health Care Education/Training Program
DX: R42 Dizziness and giddiness (principal); R79.9 Abnormal finding of blood chemistry, unspecified
CPT/HCPCS: 36415; 70450; 70496; 70498; 70551; 80053; 81001; 83605; 83880; 84443; 84484; 85025; 85610; 85730; 93005; 93246; 94761; 99285; A9270; Q9967

== ENCOUNTER 2025-03-27 13:03 | Outpatient (REF) | payer MEDICARE, BC, SELFPAY ==
[2025-03-27 13:58] LABS: Chloride* 105 mmol/L (96-114)
[2025-03-27 13:59] LABS: Potassium* 5.1 mmol/L (3.6-5.1); Sodium* 139 mmol/L (135-149)
[2025-03-27 14:01] LABS: Blood Urea Nitrogen* 19 mg/dL (7-30); Creatinine* 1.2 mg/dL (0.5-1.5); Estimated Glomerular Filt Rate 60 ml/min
[2025-03-27 14:02] LABS: Anion Gap 7 mEq/L (7-15); Calcium* 9.2 mg/dL (8.4-10.6); Carbon Dioxide* 27 mmol/L (20-32); Glucose* 77 mg/dL (60-115)
--- OUTSIDE RECORDS SUMMARY | 2025-03-28 00:17 | XMS_ITS | Clinical Summary ---
Author Organization [employer] [facility] Address [address] [place] [id number] Care Team Providers Care Railroad Car Checker Name Role Phone Audra Hunter MD Primary [...] if needed. Active losartan (COZAAR) 25 mg tabletIndications:E ssential hypertension, benign Take 1 Tablet (25 mg) by mouth two times daily. 90 Tablet 3 4 Active latanoprost (XALATAN) 0.005 % ophthalmic solutionIndications :Pseudophakia,Glauc philipp, unspecified glaucoma type, unspecified laterality INSTILL 1 DROP IN BOTH EYES EVERY NIGHT 2.5 mL 11 4 Active Senna 8.6 mg tabletIndications:C onstipation, acute TAKE 1 TABLET BY MOUTH TWICE DAILY 180 Tablet 5 Active atorvastatin (LIPITOR) 10 mg tabletIndications:H yperlipidemia, unspecified hyperlipidemia type Take 1 Tablet (10 mg) by mouth once daily in the evening. 90 Tablet 5 Active donepeziL (ARICEPT) 5 mg tabletIndications:N eurocognitive disorder Take 1 Tablet (5 mg) by mouth at bedtime. 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 Overview (11/18/2023): Covid (06/19/2022) s/p [...] angiography) without stenting - Coronary angiography at [place], [place] demonstrated obstructive disease of 1st and [...] Encounters Date Type Department Care Team Description 03/12/2025 Orders Only [facility] [address] [place] [address] Goldie Phillips 1 scan: (1-Ord) ZIO 02/15/2025 Refill [facility] [address] [place] [address] Selina Craft DO Refill Request (Clopidogrel) 02/12/2025 Orders Only [facility] Scanner 1 scan: (1-Ord) [place], CT ANGIO HEAD, 02/12/2025 02/12/2025 Orders Only [facility] Scanner 1 scan: (1-Ord) [facility], MR HEAD/BRAIN WO CON , 02/12/2025 02/12/2025 Orders Only [facility] Scanner 1 scan: (1-Ord) [place], HEAD/BRAIN WO CON, 02/12/2025 02/07/2025 Refill [facility] [address] [place] [address] Selina Craft, Refill Request (Aspirin Enteric Coated) 01/18/2025 Refill [facility] [address] [place] [address] Selina Craft, Refill Request (Donepezil, Atorvastatin) from Last 3 Months Immunizations Immunization Administration Dates Next Due Td (Age >=7 Years) 05/06/1992 Family History Medical History Relation Name Comments Genetic Other 1 Father of [place] age 68~Mother of pneumonia age 85 and senile demintia after 80 y/o~Relevant illness in sibling; 1/2 sister ETOH cirrhosis age 50; another 1/2 sister who was a twin age 70 from heart attack and also dx with colon cancer (dx at* Genetic Other 2 Father of [place] age 68~Mother of pneumonia age 85 and [...] on file Legal Sex Male 5:22 AM LINKER UP Gender Identity Not on file Sexual Orientation Not on file Obstetrics History Last Filed Vital Signs Vital Sign Reading Time Taken Comments Blood Pressure 155/81 03/10/2024 9:52 AM CDT Pulse 54 03/10/2024 9:52 AM CDT Temperature 36.4 C (97.6 F) 05/31/1998 12:00 AM LINKER UP Respiratory Rate 16 05/17/1998 12:00 AM LINKER UP Oxygen Saturation 99% 03/10/2024 9:52 AM CDT [...] series) 2015 COVID-19 vaccine series ( season) 2025 04/12/2023, 04/06/2022, 10/21/2021, Additional history exists Influenza Vaccine (#1) 2025 BMI (ht and wt on same day) for age 18+ 03/10/2025 03/10/2024 Depression screening for age 12+ 03/10/2025 03/10/2024 Medicare Wellness for age 65+ 03/11/2025 03/10/2024 Hepatitis B series for 19+ Aged Out N o longer eligible based on patient's age to complete this topic Procedures Procedure Name Priority Date/Time Associated Diagnosis Comments EXTENDED HOLTER Routine 02/12/2025 Dizziness and giddiness SCAN-CT INTERPRETATION 5 12:00 AM CDT SCAN-MRI INTERPRETATION 02/13/20 25 12:00 AM CDT SCAN-CT INTERPRETATION 5 12:00 AM CDT from Last 3 Months Results * EXTENDED HOLTER (02/12/2025) us Selina Craft DO CARDIAC SERVICES ORD Final Resul t * SCAN-MRI INTERPRETATION (02/12/2025 12:00 AM CDT) Anatomical Region Laterality Modality Other us Scanner OTHER Final Result * SCAN-CT INTERPRETATION (02/12/2025 12:00 AM CDT) Only the most recent of2 resultswithin the time period is included. Anatomical Region Laterality Modality Other us Scanner OTHER Final Result from Last 3 Months Insurance MEDICARE PART B HB ONLY MEDICARE PB ONLY [facility] Advance Directives Documents on File Type Date Recorded Patient Visual Communications Instructor Expl anation POLST 04/18/2024 Care Teams Railroad Car Checker Relationship Specialty Start Date End Date Audra Hunter MD [address] [address] PCP - General Family Practice 10/19/24
--- OUTSIDE RECORDS SUMMARY | 2025-03-28 00:17 | XMS_ITS | Encounter Summary ---
Author Organization [facility] Address [address] [place] [address] Care Team Providers Care Fondant Cooker Name Role Phone Elsewhere, Pcp Primary Care Provider Unavailabl e Encounter Details Date Type Department Care Team (Late st Contact Info) Description 03/27/2025 Orders Only Division of Gastroenterology in [place], [place] [address] [place] [address] External, Ordering ProviderJessica Social History Tobacco Use Types Packs/Day Years Used Date Smoking Tobacco: Former Pipe Passive Smoke Exposure: Past Smokeless Tobacco: Never Comments:dates are approxima te Alcohol Use Standard Drinks/Week Comments Not Currently 0 (1 standard drink = 0.6 oz pur e alcohol) [facility] Utilities Answer Date Recorded In the past 12 months has [employer] electric, gas, oil, or water company threatened to shut off services in your [...] your living situation today? I have a [facility] place to live 09/04/2023 Education Answer Date Recorded What is the highest level of school you have completed or the highest degree you have received? Bachelor's degree (e.g., BA, AB, BS) 02/15/2022 Sex and Gender Information Value Date Recorded Sex Assigned at Male 03/06/2021 10:40 AM CDT Legal Sex Male 2:54 PM PLANT QUALITY MANAGER Gender Identity Male 08/08/2020 8:57 AM PLANT QUALITY MANAGER Sexual Orientation Straight 07/27/2020 8: 49 AM PLANT QUALITY MANAGER documented as of this encounter Plan of Treatment Not on file documented as of this encounter Procedures Procedure Name Priority Date/Time Associated Diagnosis Comments HEMOGLOBIN A1C, B Routine 03/27/2025 11: 05 AM CDT BASIC METABOLIC PANEL, S/P Routine 03/27/2025 11:05 AM CDT documented in this encounter Results * Hemoglobin A1c (03/27/2025 11:05 AM CDT) Pathologist [facility] EXT Hemoglobin A1c, B 5.5 0 - 5.6 % [facility] 03/27/2025 11:0 5 AM CDT Narrative [facility] - 03/27/2025 3:37 PM CDT Source result document attached to Order Number [id number] (BASIC METABOLIC PANEL, BLOOD) dated 03/27/2025. External results verified in Extract by Lucía Olmos on 03/27/2025 at 03:32 PM. us Ordering Provider External M.DStacie LAB BLOOD ADD-ON Final Result Performing Organization Address City/[facility]/ZIP Co de Phone Number [facility] [address] [place] [address] * Basic Metabolic Panel (03/27/2025 11:05 AM CDT) [facility] EXT Sodium 139 135 - 149 mmol/L [facility] EXT Potassium 5.1 3.6 - 5.1 mmol/L [facility] EXT Chloride 105 96 - 114 mmol/L [facility] EXT CO2 27 20 - 32 mmol/L [facility] EXT Anion Gap 7 7 - 15 mEq/L [facility] EXT BUN (Blood Urea Nitrogen) 19 7 - 30 mg/dL [facility] EXT Creatinine 1.2 0.5 - 1.5 mg/dL [facility] EXT Estimated GFR (eGFR) 60 ml/min [facility] EXT Calcium, Total 9.2 8.4 - 10.6 mg/dL [facility] EXT Glucose 77 60 - 115 mg/dL [facility] 03/27/2025 11:0 5 AM CDT Narrative [facility] - 03/27/2025 3:37 PM CDT External results verified in Extract by Lucía Olmos on 03/27/2025 at 03:32 PM. us Ordering Provider External M.DStacie LAB BLOOD ADD-ON Final Result [facility] [address] [place] [address] documented in this encounter Visit Diagnoses Not on filedocumented in this encounter Additional Health Concerns Assessment Noted Time PHQ-9 Depression Total Score: 0 01/27/20 22 9:25 AM CDT documented as of this encounter Care Teams Fondant Cooker Relationship Specialty Start Date End Date Elsewhere, Pcp PCP - General Internal Medicine 10/26/24 documented as of this encounter
--- OUTSIDE RECORDS SUMMARY | 2025-03-28 00:18 | XMS_ITS | Encounter Summary ---
Author Organization [facility] Address [address] [place] [address] Care Team Providers Care Machine Try Out Setter Name Role Phone Elsewhere, Pcp Primary Care Provider Unavailabl e Encounter Details Date Type Department Care Team (Late st Contact Info) Description 02/26/2022 Orders Only [facility] [address] [place] [address] [facility], Provider, Screening Test Laboratory Social History [...] AM CDT Legal Sex Male 2:54 PM UPS DRIVER Gender Identity Male 08/08/2020 8:57 AM UPS DRIVER Sexual Orientation Straight 07/27/2020 8: 49 AM UPS DRIVER documented as of this encounter Plan of Treatment Not on file documented as of this encounter Visit Diagnoses Diagnosis Screening Test Laboratory documented in this encounter Additional Health Concerns Infection Onset Date Last Indicated Resolved Time COVID19 Pending 02/26/2022 02/26/2022 02/26/2022 1 1:40 AM CDT COVID19 Pending 02/26/2022 02/26/202202/26/2022 1 :12 PM CDT COVID19 Pending 06/19/2022 06/19/2022 06/19/2022 1 0:27 AM UPS DRIVER COVID19 Pending 06/19/2022 06/19/2022 06/19/2022 1 1:20 AM UPS DRIVER COVID19 06/19/2022 06/19/2022 07/09/2022 5:18 AM UPS DRIVER Assessment Noted Time PHQ-9 Depression Total Score: 0 01/27/20 9:25 AM CDT documented as of this encounter Care Teams Machine Try Out Setter Relationship Specialty Start Date End Date Elsewhere, Pcp PCP - General Internal Medicine 10/26/24 documented as of this encounter
--- OUTSIDE RECORDS SUMMARY | 2025-03-28 00:18 | XMS_ITS | Clinical Summary ---
Author Organization [facility] Address [address] [place] [address] Care Team Providers Care Garageman Name Role Phone Elsewhere, Pcp Primary Care Provider Unavailabl e Source Comments Patient records contain information from all sites at [facility]. For routine questions regarding patient records, call [phone] during business hours, M-F 8:00 AM - 5:00 PM Central Time. Record requests for emergency care only can be directed to [phone] at any time.[facility] Allergies Active Allergy Reactions Criticality Noted Date Comments Pollen Extracts Cough 12/15/2017 Medications * This document contains information received from the source organization and may not represent a complete record from that organization. acetaminophen (TYLENOL) 500 mg tablet Take 500 mg by mouth every 6 (six) hours as needed. Active vit C,J-Cu-inwkk-pippa tein-zeaxan (PreserVision AREDS-2) 250-90-40-1 mg per capsule [...] Problems Problem Noted Date Diagnosed Date Metabolizer [id number] Rapid 09/07/20232023 Overview (09/07/2023): With prodrugs that are activated by WYD7M94, such as clopidogrel, increased drug activation may [...] angiography) without stenting - Coronary angiography at [place], [place] demonstrated obstructive disease of 1st and [...] Encounters Date Type Department Care Team Description 03/27/2025 Orders Only Division of Gastroenterology in [place], [place] [address] [place] [address] External, Ordering Provider, Jessica from Last 3 Months Immunizations Immunization Administration [...] drink = 0.6 oz pur e alcohol) [facility] Utilities Answer Date Recorded In the past 12 months has e [employer], gas, oil, or water [employer] threatened to shut off services in your [...] your living situation today? I have a [facility] place to live 09/04/2023 Education Answer Date Recorded What is the highest level of school you have completed or the highest degree you have received? Bachelor's degree (e.g., BA, AB, BS) 02/15/2022 Sex and Gender Information Value Date Recorded Sex Assigned at Male 03/06/2021 10:40 AM CDT Legal Sex Male 2:54 PM OFFSET PRESS OPERATOR HELPER Gender Identity Male 08/08/2020 8:57 AM OFFSET PRESS OPERATOR HELPER Sexual Orientation Straight 07/27/2020 8: 49 AM OFFSET PRESS OPERATOR HELPER Last Filed Vital Signs Vital Sign Reading Time Taken Comments Blood Pressure 129/78 09/08/2023 8:15 AM OFFSET PRESS OPERATOR HELPER Pulse 56 09/08/2023 8:15 AM OFFSET PRESS OPERATOR HELPER Temperature 36.8 C (98.2 F) 03/25/2023 11:18 AM CDT Respiratory Rate 16 09/07/2022 9:10 AM OFFSET PRESS OPERATOR HELPER Oxygen Saturation 97% 09/08/2023 7:51 AM OFFSET PRESS OPERATOR HELPER Inhaled Oxygen Concentration - - Weight 65 kg (143 lb 4.8 oz) 09/08/2023 7:51 AM OFFSET PRESS OPERATOR HELPER Height 166 cm (5' 5.35) 09/08/2023 7:51 AM OFFSET PRESS OPERATOR HELPER Body Mass Index 23.59 09/08/2023 7:51 AM OFFSET PRESS OPERATOR HELPER Plan of Treatment Health Maintenance Due Date Last Done Comments Office Visit for Blood Pressure Check / Re-check 1940 Depression Screening (Annual PHQ-2) 07/05/2024 Fall Risk Screen (Annual) 07/05/2024 COVID-19 Vaccine ( season) 2025 04/12/2023, 04/06/2022, 10/21/2021, Additional history exists Influenza Vaccine (#1) 2025 , 04/06/2022, 04/03/2021, Additional history exists Creatinine Level (Kidney Function Test) 03/27/2026 03/27/2025, 09/03/2023, 08/04/2023, Additional history exists Potassium Level 03/27/2026 03/27/2025, 03/0 07/2023, 08/04/2023, Additional history exists Sodium Level 03/27/2026 03/27/2025, 03/0 07/2023, 08/04/2023, Additional history exists DTaP,Tdap,and Td Vaccines (4 [...] PANEL, S/P Routine 03/27/2025 11:05 AM CDT from Last 3 Months Results * Hemoglobin A1c (03/27/2025 11:05 AM CDT) EXT Hemoglobin A1c, B 5.5 0 - 5.6 % [facility] 03/27/2025 11:0 5 AM CDT Narrative [facility] - 03/27/2025 3:37 PM CDT Source result document attached to Order Number [id number] (BASIC METABOLIC PANEL, BLOOD) dated 03/27/2025. External results verified in Extract by Lucía Olmos on 03/27/2025 at 03:32 PM. us Ordering Provider External M.D. LAB BLOOD ADD-ON Final Result [facility] [address] [place], [place] [address] [phone] * Basic Metabolic Panel (03/27/2025 11:05 AM CDT) EXT Sodium 139 135 - 149 mmol/L [facility] EXT Potassium 5.1 3.6 - 5.1 mmol/L [facility] EXT Chloride 105 96 - 114 mmol/L [facility] EXT CO2 27 20 - 32 mmol/L [facility] EXT Anion Gap 7 7 - 15 mEq/L [facility] EXT BUN (Blood Urea Nitrogen) 19 7 - 30 mg/dL [facility] EXT Creatinine 1.2 0.5 - 1.5 mg/dL [facility] EXT Estimated GFR (eGFR) 60 ml/min [facility] EXT Calcium, Total 9.2 8.4 - 10.6 mg/dL [facility] EXT Glucose 77 60 - 115 mg/dL [facility] 03/27/2025 11:0 5 AM CDT Narrative [facility] - 03/27/2025 3:37 PM CDT External results verified in Extract by Lucía Olmos on 03/27/2025 at 03:32 PM. us Ordering Provider External MDee Dee LAB BLOOD ADD-ON Final Result Performing Organization Address City/[facility]/ZIP Co de Phone Number [facility] [address] [place] [address], [facility] [phone] from Last 3 Months Insurance [facility] MEDIC[facility] Advance Directives For more information, please contact: [phone] Documents on File Type Date Recorded Patient Wire Bender Expl anation Advance Directives 01/14/2023 3:23 PM Ary Alas HCPOA/ADVOCATE/AGENT/ CLINICAL DOCUMENTATION SPECIALIST/SURROG ATE Advance Directives 09/01/2021 2:35 PM HCPO A/ADVOCATE/AGENT/ CLINICAL DOCUMENTATION SPECIALIST/SURROG ATE Healthcare Agents on File Name Relationship Healthcare Agent Relationship Communication Ary Anaya Kennymax Spouse Health Care Agent [email or web address] Greg Bentley Unknown Health Care Agent Kaylie Nunez Relative Health Care Agent [email or web address] Performance Care Teams Garageman Relationship Specialty Start Date End Date Elsewhere, Pcp PCP - General Internal Medicine 10/26/24
== END 2025-03-27 13:04 | disposition home or self-care (01) ==
LOC: NPINS 13:03
PROVIDERS: PCP Student in an Organized Health Care Education/Training Program; Visit Provider Internal Medicine Gastroenterology
DX: E11.9 Type 2 diabetes mellitus without complications (principal)
CPT/HCPCS: 80048; 83036

== ENCOUNTER 2025-05-15 16:37 | Emergency (ER) | payer MEDICARE, BC, SELFPAY ==
[2025-05-15] VITALS (18 sets, daily range): BP systolic 148–177; BP diastolic 59–81; PULSE 51–58; RESP 5–25; TEMP 37.2; O2SAT 92–99
--- OUTSIDE RECORDS SUMMARY | 2025-05-15 16:39 | XMS_ITS | Clinical Summary ---
Author Organization [facility] Address [address] [place] [address] Care Team Providers Care Automobile Brakes Bonder Name Role Phone Elsewhere, Pcp Primary Care Provider Unavailabl e Source Comments Patient records contain information from all sites at [facility]. For routine questions regarding patient records, call [phone] during business hours, M-F 8:00 AM - 5:00 PM Central Time. Record requests for emergency care only can be directed to [phone] at any time.[facility] Allergies Active Allergy Reactions Criticality Noted Date Comments Pollen Extracts Cough 12/15/2017 Medications * This document contains information received from the source organization and may not represent a complete record from that organization. acetaminophen (TYLENOL) 500 mg tablet Take 500 mg by mouth every 6 (six) hours as needed. Active vit C,H-Co-kzaui-pippa tein-zeaxan (PreserVision AREDS-2) 250-90-40-1 mg per capsule [...] Problems Problem Noted Date Diagnosed Date Metabolizer [id number] Rapid 09/07/20232023 Overview (09/07/2023): With prodrugs that are activated by [id number], such as clopidogrel, increased drug activation may [...] angiography) without stenting - Coronary angiography at [place], [place] demonstrated obstructive disease of 1st and [...] Bilateral 11/08/2017 Atherosclerotic Heart Diseas e Of [place] Coronary Artery Without Angina Pectoris 04/30/2017 Overview [...] Encounters Date Type Department Care Team Description 03/28/2025 Results Follow-Up Division of Gastroenterology in [place], [place] [address] [place] [address] Tomeka Hough R.N. Basic Metabolic Panel, Hemoglobin A1c 03/27/2025 Orders Only Division of Gastroenterology in [place], [place] [address] [place] [address] External, Ordering Provider, M.D. from Last 3 Months Immunizations Immunization Administration [...] drink = 0.6 oz pur e alcohol) [facility] Utilities Answer Date Recorded In the past 12 months has e electric, gas, oil, or water [employer] threatened to shut off services in your [...] your living situation today? I have a [facility] place to live 09/04/2023 Education Answer Date Recorded What is the highest level of school you have completed or the highest degree you have received? Bachelor's degree (e.g., BA, AB, BS) 02/15/2022 Sex and Gender Information Value Date Recorded Sex Assigned at Male 03/06/2021 10:40 AM CDT Legal Sex Male 2:54 PM SHODER FILLER Gender Identity Male 08/08/2020 8:57 AM SHODER FILLER Sexual Orientation Straight 07/27/2020 8: 49 AM SHODER FILLER Last Filed Vital Signs Vital Sign Reading Time Taken Comments Blood Pressure 129/78 09/08/2023 8:15 AM SHODER FILLER Pulse 56 09/08/2023 8:15 AM SHODER FILLER Temperature 36.8 C (98.2 F) 03/25/2023 11:18 AM CDT Respiratory Rate 16 09/07/2022 9:10 AM SHODER FILLER Oxygen Saturation 97% 09/08/2023 7:51 AM SHODER FILLER Inhaled Oxygen Concentration - - Weight 65 kg (143 lb 4.8 oz) 09/08/2023 7:51 AM SHODER FILLER Height 166 cm (5' 5.35) 09/08/2023 7:51 AM SHODER FILLER Body Mass Index 23.59 09/08/2023 7:51 AM SHODER FILLER Plan of Treatment Health Maintenance Due Date [...] 03/25/2023 RSV vaccine - (32-36 weeks) or 50+ years Completed 04/02/2023 IPV Vaccines Aged Out [...] A1c, B 5.5 0 - 5.6 % [facility] 03/27/2025 11:0 5 AM CDT Narrative [facility] - 03/27/2025 3:37 PM CDT Source result document attached to Order Number [id number] (BASIC METABOLIC PANEL, BLOOD) dated 03/27/2025. External results verified in Extract by Lucía Olmos on 03/27/2025 at 03:32 PM. us Ordering Provider External Jessica LAB BLOOD ADD-ON Final Result [facility] NA [facility] [address] [place] [address], [facility] [phone] * Basic Metabolic Panel (03/27/2025 11:05 AM CDT) EXT Sodium 139 135 - 149 mmol/L [facility] EXT Potassium 5.1 3.6 - 5.1 mmol/L [facility] EXT Chloride 105 96 - 114 mmol/L [facility] EXT CO2 27 20 - 32 mmol/L [facility] EXT Anion Gap 7 7 - 15 mEq/L [facility] EXT BUN (Blood Urea Nitrogen) 19 7 - 30 mg/dL [facility] EXT Creatinine 1.2 0.5 - 1.5 mg/dL [facility] EXT Estimated GFR (eGFR) 60 ml/min [facility] EXT Calcium, Total 9.2 8.4 - 10.6 mg/dL [facility] EXT Glucose 77 60 - 115 mg/dL [facility] 03/27/2025 11:0 5 AM CDT Narrative [facility] - 03/27/2025 3:37 PM CDT External results verified in Extract by Lucía Olmos on 03/27/2025 at 03:32 PM. us Ordering Provider External Jessica LAB BLOOD ADD-ON Final Result Performing Organization Address City/[facility]/ZIP Co de Phone Number [facility] [address] [place] [address], [facility] [phone] from Last 3 Months Insurance [address] [place] [address] [facility] MEDIC[facility] Advance Directives For more information, please contact: [phone] Documents on File Type Date Recorded Patient Color Matcher Expl anation Advance Directives 01/14/2023 3:23 PM Ary Alas HCPOA/ADVOCATE/AGENT/ MONOMER PURIFICATION OPERATOR/SURROG ATE Advance Directives 09/01/2021 2:35 PM HCPO A/ADVOCATE/AGENT/ MONOMER PURIFICATION OPERATOR/SURROG ATE Healthcare Agents on File Name Relationship Healthcare Agent Relationship Communication Ary Jaclyn Bentley Spouse Health Care Agent [email or web address] Greg Bentley Unknown Health Care Agent Kaylie Nunez Relative Health Care Agent [email or web address] Care Teams Automobile Brakes Bonder Relationship Specialty Start Date End Date Elsewhere, Pcp PCP - General Internal Medicine 10/26/24
--- OUTSIDE RECORDS SUMMARY | 2025-05-15 16:39 | XMS_ITS | Encounter Summary ---
Author Organization [facility] Address [address] [place] [address] Care Team Providers Care Knitter Mechanic Name Role Phone Elsewhere, Pcp Primary Care Provider Unavailabl e Encounter Details Date Type Department Care Team (Latest Contact Info) Description 03/28/2025 Results Follow-Up Division of Gastroenterology in [place], [place] [address] [place] [address] Tomeka Hough, RStacieN. [address] [place] [address] Basic Metabolic Panel, Hemoglobin A1c Social History Tobacco Use Types Packs/Day Years Used Date Smoking Tobacco: Former Pipe Passive Smoke Exposure: Past Smokeless Tobacco: Never Comments:dates are approxima te Alcohol Use Standard Drinks/Week Comments Not Currently 0 (1 standard drink = 0.6 oz pur e alcohol) [facility] Utilities Answer Date Recorded In the past 12 months has th e electric, gas, oil, or water [employer] threatened to shut off services in your [...] money to buy more. Never true 09/04/19 Within the past 12 months, t he [...] your living situation today? I have a [facility] place to live 09/04/2023 Education Answer Date Recorded What is the highest level of school you have completed or the highest degree you have received? Bachelor's degree (e.g., BA, AB, BS) 02/15/2022 Sex and Gender Information Value Date Recorded Sex Assigned at Male 03/06/2021 10:40 AM CDT Legal Sex Male 2:54 PM CONTENT COORDINATOR Gender Identity Male 08/08/2020 8:57 AM CONTENT COORDINATOR Sexual Orientation Straight 07/27/2020 8: 49 AM CONTENT COORDINATOR documented as of this encounter Plan of Treatment Not on file documented as of this encounter Visit Diagnoses Not on filedocumented in this encounter Additional Health Concerns Assessment Noted Time PHQ-9 Depression Total Score: 0 01/27/20 22 9:25 AM CDT documented as of this encounter Care Teams Knitter Mechanic Relationship Specialty Start Date End Date Elsewhere, Pcp PCP - General Internal Medicine 10/26/24 documented as of this encounter
--- OUTSIDE RECORDS SUMMARY | 2025-05-15 16:39 | XMS_ITS | Clinical Summary ---
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 Overview (11/18/2023): Covid (06/19/2022) s/p [...] angiography) without stenting - Coronary angiography at [place], [place] demonstrated obstructive disease of 1st and [...] Encounters Date Type Department Care Team Description 05/07/2025 Transcribe Orders [facility] [place] [address] [place] [address] Self, Referral 03/12/2025 Orders Only [facility] [address] [place], [place] [id number] Goldie Phillips 1 scan: (1-Ord) KENNYO 02/15/2025 Refill [facility] [address] [place] [address] Selina Craft, DO Refill Request (Clopidogrel) 02/12/2025 Orders Only [facility] Scanner 1 scan: (1-Ord) [facility], CT ANGIO HEAD, 02/12/2025 02/12/2025 Orders Only [facility] Scanner 1 scan: (1-Ord) [facility], MR HEAD/BRAIN WO CON , 02/12/2025 02/12/2025 Orders Only [facility] Scanner 1 scan: (1-Ord) [facility], HEAD/BRAIN WO CON, 02/12/2025 from Last 3 Months Immunizations Immunization Administration Dates Next Due Td (Age >=7 Years) 05/06/1992 Family History Medical History Relation Name Comments Genetic Other 1 Father of [place] age 68~Mother of pneumonia age 85 and senile demintia after 80 y/o~Relevant illness in sibling; 1/2 sister ETOH cirrhosis age 50; another 1/2 sister who was a twin age 70 from heart attack and also dx with colon cancer (dx at* Genetic Other 2 Father of [place] age 68~Mother of pneumonia age 85 and [...] on file Legal Sex Male 5:22 AM CANVAS WORKER Gender Identity Not on file Sexual Orientation Not on file Obstetrics History Last Filed Vital Signs Vital Sign Reading Time Taken Comments Blood Pressure 155/81 03/10/2024 9:52 AM CDT Pulse 54 03/10/2024 9:52 AM CDT Temperature 36.4 C (97.6 F) 05/31/1998 12:00 AM CANVAS WORKER Respiratory Rate 16 05/17/1998 12:00 AM CANVAS WORKER Oxygen Saturation 99% 03/10/2024 9:52 AM CDT Inhaled Oxygen Concentration - - Weight 67.2 kg (148 lb 3.2 oz) 03/10/2024 9:52 A M CDT Height 163 cm (5' 4.17) 03/10/2024 9:52 AM CDT Body Mass Index 25.3 03/10/2024 9:52 AM CDT Plan of Treatment Upcoming Encounters Date Type Department Care Team (Late st Contact Info) Description 07/10/2025 1:00 PM CANVAS WORKER Office Visit [facility] [place] [address] [facility] [address] [place] [address] Erik Moody MD [address] [facility] [address] [place], [place] [phone] Health Maintenance Due Date Last Done Comments Pneumococcal series for age 50+ (1 of 2 - PCV) 1959 Zoster (shingles) series for age 50+ (1 of 2) 1990 Tetanus booster 05/06/2002 05/06/1992 RSV vaccine for adults or (1 - 1-dose 75+ series) 2015 Influenza Vaccine (#1) 2025 BMI (ht and wt on same day) for age 18+ 03/10/2025 03/10/2024 Depression screening for age 12+ 03/10/2025 03/10/20 24 Medicare Wellness for age 65+ 03/11/2025 03/10/2024 [...] PART B HB ONLY MEDICARE PB ONLY [facility] Advance Directives Documents on File Type Date Recorded Patient Resource Development Manager Expl anation POLST 04/18/2024 Care Teams Stripping And Booking Machine Operator Relationship Specialty Start Date End Date Audra Hunter MD [facility] [address] [id number] PCP - General Family Practice 10/19/24
--- OUTSIDE RECORDS SUMMARY | 2025-05-15 16:39 | XMS_ITS | Encounter Summary ---
Author Organization [facility] Address [address] [place] [address] Care Team Providers Care Account Officer Name Role Phone Elsewhere, Pcp Primary Care Provider Unavailabl e Encounter Details Date Type Department Care Team (Late st Contact Info) Description 02/26/2022 Orders Only [facility] [address] [place] [address] [facility], Provider, Screening Test Laboratory Social History [...] place to sleep or slept in a retirement (including now)? No 02/15/2022 Depression Answer Date [...] AM CDT Legal Sex Male 2:54 PM CENTRAL OFFICE WORKER Gender Identity Male 08/08/2020 8:57 AM CENTRAL OFFICE WORKER Sexual Orientation Straight 07/27/2020 8: 49 AM CENTRAL OFFICE WORKER documented as of this encounter Plan of Treatment Not on file documented as of this encounter Visit Diagnoses Diagnosis Screening Test Laboratory documented in this encounter Additional Health Concerns Infection Onset Date Last Indicated Resolved Time COVID19 Pending 02/26/2022 02/26/2022 02/26/2022 1 1:40 AM CDT COVID19 Pending 02/26/2022 02/26/202202/26/2022 1 :12 PM CDT COVID19 Pending 06/19/2022 06/19/2022 06/19/2022 1 0:27 AM CENTRAL OFFICE WORKER COVID19 Pending 06/19/2022 06/19/2022 06/19/2022 1 1:20 AM CENTRAL OFFICE WORKER COVID19 06/19/2022 06/19/2022 07/09/2022 5:18 AM CENTRAL OFFICE WORKER Assessment Noted Time PHQ-9 Depression Total Score: 0 01/27/20 9:25 AM CDT documented as of this encounter Care Teams Account Officer Relationship Specialty Start Date End Date Elsewhere, Pcp PCP - General Internal Medicine 10/26/24 documented as of this encounter
--- NOTE | 2025-05-15 18:49 | ED.GENADULT ---
HPI - General Adult General Chief complaint: Dizziness/Vertigo Stated complaint: nausea, low pulse Time Seen by Provider: 05/15/25 18:49 History of Present Illness HPI narrative: Patient presents to the emergency department complaining of a low heart rate. Patient states today in the early afternoon he began to experience dizziness. Patient states he has been feeling fine otherwise. No pain. No headache. No unilateral weakness. Patient did provide fdc documentation and patient has had a pulse in the 50's for the last 6 days . Patient today with a pulse in the 50's was administered his metoprolol. 84-year-old man presenting to the emergency department concern of dizziness. Is not feeling dizzy at this time and actually describes this as more of a lightheadedness with further questioning. Worse with movement, transitions and then settles. Not actually with any symptoms currently. No chest pain. Shortness of breath. Review of records shows generally that the pulse is in the 50s. Has received his metoprolol today as well. Was seen in this emergency department for in dizziness on February 2025. Noted were prior strokes. There is a question of a TIA during that visit. Was initiated on aspirin along with Plavix. Completed clopidogrel course and now only taking aspirin. Did consider monitoring and evaluation advisor at this visit and this ultimately was done, placed outpatient and reportedly by son who accompanies, was without concern/event. No fever, no chest pain, no shortness of breath. No headache. 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 Home Medications ?Medication ?Instructions ?Recorded ?Confirmed atorvastatin .Route 02/29/24 losartan .ROUTE 02/29/24 metoprolol succinate 12.5 mg PO BID 02/29/24 05/15/25 aspirin 81 mg tablet,delayed 81 mg PO DAILY 02/12/25 05/15/25 release (Adult Aspirin Regimen) atorvastatin 10 mg tablet 10 mg PO DAILY 02/12/25 05/15/25 donepezil 5 mg tablet 5 mg PO DAILY 02/12/25 05/15/25 latanoprost 0.005 % eye drops drp ophthalmic (eye) 02/12/25 losartan 25 mg tablet 25 mg PO BID 02/12/25 05/15/25 metformin 500 mg tablet,extended 500 mg PO DAILY 02/12/25 05/15/25 release 24 hr trazodone 50 mg tablet 25 mg PO QPM PRN 02/12/25 02/12/25 Previous Rx's ?Medication ?Instructions ?Recorded clopidogrel 75 mg tablet (Plavix) 75 mg PO DAILY #20 tabs 02/12/25 Allergies Allergy/AdvReac Type Severity Reaction Status Date / Time No Known Drug Allergies Allergy Verified 05/15/25 16:52 Review of Systems Status of ROS: Reports: 6 or more systems reviewed and unremarkable except as noted in History and below PFSH PFSH Social History Smoking Status: Former smoker How often do you have a drink containing alcohol: 2-4 times a month How often do you have six or more drinks on one occasion: Never AUDIT-C Alcohol total score: 2 Non-prescribed substance use: denies use service: No Exam Narrative: Exam Narrative: Very pleasant. Calm. NAD. Head is atraumatic. Evidence of some dementia with some mild difficulty in recall but he is careful in his consideration and articulating clearly his thoughts I think. Lungs are clear. Breathing easily. Cranial nerves 2-12 intact. No demonstrable dizziness or lightheadedness with rotational movements of his head or eyes. Extraocular movements are full. Heart in bradycardic regular rhythm. No murmur noted. Abdomen is protuberant soft and nontender. Is well-perfused peripherally without edema. Const: Vital Signs, click to edit/add: Vital Signs - 24 hr 05/15/25 16:42 05/15/25 18:55 05/15/25 19:00 Temperature 99.0 F Pulse Rate 53 L 53 L Pulse Rate [Right Pulse Oximeter] 52 L Respiratory Rate 18 11 L 16 Blood Pressure Blood Pressure [Ri ght Upper Arm] 148/59 H Pulse Oximetry 99 98 98 Oxygen Delivery Me thod Room Air 05/15/25 19:15 05/15/25 19:18 05/15/25 19:19 Temperature Pulse Rate 51 L 53 L 53 L Pulse Rate [Right Pulse Oximeter] Respiratory Rate 21 25 H 16 Blood Pressure 155/69 H 164/76 H Blood Pressure [Ri ght Upper Arm] Pulse Oximetry 97 99 98 Oxygen Delivery Me thod Room Air 05/15/25 19:21 05/15/25 19:28 05/15/25 19:30 Temperature Pulse Rate 55 L 51 L 53 L Pulse Rate [Right Pulse Oximeter] Respiratory Rate 15 11 L Blood Pressure 171/81 H 151/71 H Blood Pressure [Ri ght Upper Arm] Pulse Oximetry 97 99 99 Oxygen Delivery Me thod 05/15/25 19:32 05/15/25 19:45 05/15/25 20:00 Temperature Pulse Rate 52 L 52 L Pulse Rate [Right Pulse Oximeter] Respiratory Rate 17 21 Blood Pressure 152/78 H 177/67 H Blood Pressure [Ri ght Upper Arm] Pulse Oximetry 99 99 99 Oxygen Delivery Me thod Room Air 05/15/25 20:01 05/15/25 20:03 05/15/25 20:15 Temperature Pulse Rate 54 L 58 L 55 L Pulse Rate [Right Pulse Oximeter] Respiratory Rate 9 L 14 5 L Blood Pressure Blood Pressure [Ri ght Upper Arm] Pulse Oximetry 92 98 97 Oxygen Delivery Me thod 05/15/25 20:30 05/15/25 20:32 05/15/25 20:45 Temperature Pulse Rate 56 L 55 L 57 L Pulse Rate [Right Pulse Oximeter] Respiratory Rate 7 L 14 18 Blood Pressure 154/81 H Blood Pressure [Ri ght Upper Arm] Pulse Oximetry 98 97 97 Oxygen Delivery Me thod Room Air Documenting provider has reviewed patient's vital signs: yes Course Vital Signs Vital signs: Initial Vital Signs Temperature 99.0 F 05/15/25 16:42 Temperature Source Temporal Artery Scan 05/15/25 16:42 Pulse Rate 52 L 05/15/25 16:42 Pulse Rhythm Regular 05/15/25 16:42 Pulse Strength 3+ Normal 05/15/25 16:42 Respiratory Rate 18 05/15/25 16:42 Blood Pressure 148/59 H 05/15/25 16:42 Blood Pressure Mean 88 05/15/25 16:42 Blood Pressure Position Sitting 05/15/25 16:42 Pulse Oximetry 99 05/15/25 16:42 Oxygen Delivery Method Room Air 05/15/25 16:42 Vital Signs Temperature 99.0 F 05/15/25 16:42 Pulse Rate 52 L 05/15/25 16:42 Respiratory Rate 18 05/15/25 16:42 Blood Pressure 148/59 H 05/15/25 16:42 Pulse Oximetry 99 05/15/25 16:42 Oxygen Delivery Method Room Air 05/15/25 16:42 Temperature 99.0 F 05/15/25 16:42 Pulse Rate 57 L 05/15/25 20:45 Respiratory Rate 18 05/15/25 20:45 Blood Pressure 154/81 H 05/15/25 20:32 Pulse Oximetry 97 05/15/25 20:45 Oxygen Delivery Method Room Air 05/15/25 20:32 Medical Decision Making MDM Narrative Medical decision making narrative: I am able to locate results of ZIO patch placed in mid February. There were ?60 for supraventricular tachycardia runs over the period of monitoring. None lasting more than 7 beats. Has continued on metoprolol. Does not look as though there were further recommendations. I do not think symptoms as described reach degree that I would workup for TIA or CVA. Certainly without emergent intervention. Is already taking a daily low-dose aspirin and workup with more significant symptoms in February was unremarkable for new disease. Seems more cardiovascular in nature these symptoms. Check standard labs. Possible anemia. Challenge also of elderly with dementia. Orthostatics were done here and were asymptomatic. Some systolic lowering of pressure but not meeting criteria for orthostatic hypotension. Pulses understandably beta blocked increased up to 56 with there is orthostatics. Monitor on monitoring and evaluation advisor without event. Labs are reassuring. Urinalysis was not obtained prior to departure. He is without symptoms however. Later ambulated around the emergency department without symptoms and heart rate into the 60s. See patient discharge plan for further discussion Considering that your heart rate is, as far as I can tell typically below 60, yes you might need to adjust your metoprolol dosing. I would discuss this with your primary care provider; the provider who provides cares at your residence. I do not think changes need to be made tonight. Stay well-hydrated. Take care in transitions. Your potassium has also been creeping up. Tonight it measured 5.3. Would recheck in a couple of weeks. Return for marked increase in persistent lightheadedness or dizziness, shortness of breath or chest pain. Medical Records Medical records reviewed: Yes I reviewed the patient's medical records Lab Data Lab results reviewed: Yes I reviewed the patient's lab results Labs: Lab Results 05/15/25 Range/Units 19:30 WBC 4.02 L (4.50-11.00) K/uL RBC 3.93 L (4.30-5.90) m/uL Hgb 11.9 L (13.5-17.5) gm/dL Hct 36.8 L (37.0-53.0) % MCV 94 (80-100) fL MCH 30 (26-34) pg MCHC 32 (32-36) gm/dL RDW Coeff of Laura 12.4 (11.5-15.5) % Plt Count 117 L (140-440) K/uL Neut % (Auto) 42.9 (42.0-72.0) % Lymph % (Auto) 36.1 (20-44) % [place] % (Auto) 16.4 H (0.0-11.0) % Eos % (Auto) 1.2 (0.0-7.0) % Baso % (Auto) 0.2 (0.0-3.0) % Neut # (Auto) 1.70 (1.7-7.0) K/uL Lymph # (Auto) 1.50 (0.90-2.90) K/uL [place] # (Auto) 0.70 (0.00-0.90) K/UL Eos # (Auto) 0.00 (0.00-0.50) K/uL Baso # (Auto) 0.00 (0.00-0.30) K/uL Abs Immat Gran (auto) 0.10 (0.00-0.30) K/uL Imm/Tot Granulo (auto) 3.2 % Sodium 138 (135-149) mmol/L Potassium 5.3 H (3.6-5.1) mmol/L Chloride 104 (96-114) mmol/L Carbon Dioxide 23 (20-32) mmol/L Anion Gap 11 (7-15) mEq/L BUN 23 (7-30) mg/dL Creatinine 1.3 (0.5-1.5) mg/dL Estimated GFR 54 ml/min Glucose 93 (60-115) mg/dL Calcium 9.0 (8.4-10.6) mg/dL Troponin I < 0.01 (0.01-0.04) ng/mL ECG Data Attestation: I personally reviewed and interpreted this ECG as follows: (sinus bradycardia. rate of 50) Discharge Plan Discharge Clinical Impression: Intermittent lightheadedness Patient Disposition: Home w/ Parent or Adult Condition: Improved Additional Instructions: Considering that your heart rate is, as far as I can tell typically below 60, yes you might need to adjust your metoprolol dosing. I would discuss this with your primary care provider; the provider who provides cares at your residence. I do not think changes need to be made tonight. Stay well-hydrated. Take care in transitions. Your potassium has also been creeping up. Tonight it measured 5.3. Would recheck in a couple of weeks. Return for marked increase in persistent lightheadedness or dizziness, shortness of breath or chest pain. Prescriptions: No Action metoprolol succinate 12.5 mg PO BID losartan .ROUTE atorvastatin .Route donepezil 5 mg tablet 5 mg PO DAILY aspirin [Adult Aspirin Regimen] 81 mg tablet,delayed release (DR/EC) 81 mg PO DAILY latanoprost 0.005 % drops ophthalmic (eye) trazodone 50 mg tablet 25 mg PO QPM PRN atorvastatin 10 mg tablet 10 mg PO DAILY losartan 25 mg tablet 25 mg PO BID metformin 500 mg tablet extended release 24 hr 500 mg PO DAILY clopidogrel [Plavix] 75 mg tablet 75 mg PO DAILY Qty: 20 0RF Follow Up/Referrals: ALLI GOOD DO [Primary Care Provider, Family Practice] Stand Alone Forms: [facility] Info Instructions
[2025-05-15 19:33] LABS: Hematocrit* 36.8 % (37.0-53.0); Hemoglobin* 11.9 gm/dL (13.5-17.5); Immature Granulocytes Pct Auto 3.2 %; Mean Corpuscular HGB Conc 32 gm/dL (32-36); Mean Corpuscular Hemoglobin 30 pg (26-34); Mean Corpuscular Volume 94 fL (80-100); RDW Coefficient of Variation % 12.4 % (11.5-15.5); Red Blood Count* 3.93 m/uL (4.30-5.90); White Blood Count* 4.02 K/uL (4.50-11.00)
[2025-05-15 19:35] LABS: Immature Granulocytes Abs Auto 0.10 K/uL (0.00-0.30); Lymphocytes Absolute Auto 1.50 K/uL (0.90-2.90); Slide Review Reflex No
[2025-05-15 19:47] LABS: Chloride* 104 mmol/L (96-114); Potassium* 5.3 mmol/L (3.6-5.1); Sodium* 138 mmol/L (135-149)
[2025-05-15 19:50] LABS: Anion Gap 11 mEq/L (7-15); Blood Urea Nitrogen* 23 mg/dL (7-30); Calcium* 9.0 mg/dL (8.4-10.6); Carbon Dioxide* 23 mmol/L (20-32); Creatinine* 1.3 mg/dL (0.5-1.5); Estimated Glomerular Filt Rate 54 ml/min; Glucose* 93 mg/dL (60-115)
== END 2025-05-15 21:14 | disposition home or self-care (01) ==
PROVIDERS: Emergency Provider Family Medicine; PCP Student in an Organized Health Care Education/Training Program
DX: R42 Dizziness and giddiness (principal); R00.1 Bradycardia, unspecified
CPT/HCPCS: 36415; 80048; 81001; 84484; 85025; 93005; 99284; 99285

== ENCOUNTER 2025-05-29 10:15 | Outpatient (REF) | payer MEDICARE, BC, SELFPAY ==
[2025-05-29 11:19] LABS: Chloride* 103 mmol/L (96-114); Potassium* 4.4 mmol/L (3.6-5.1); Sodium* 143 mmol/L (135-149)
[2025-05-29 11:22] LABS: Anion Gap 11 mEq/L (7-15); Blood Urea Nitrogen* 22 mg/dL (7-30); Calcium* 9.4 mg/dL (8.4-10.6); Carbon Dioxide* 29 mmol/L (20-32); Creatinine* 1.3 mg/dL (0.5-1.5); Estimated Glomerular Filt Rate 54 ml/min; Glucose* 71 mg/dL (60-115)
--- OUTSIDE RECORDS SUMMARY | 2025-05-30 00:14 | XMS_ITS | Clinical Summary ---
Author Organization [facility] Address [address] [place] [address] Care Team Providers Care Acupuncture Physician Name Role Phone Elsewhere, Pcp Primary Care Provider Unavailabl e Source Comments Patient records contain information from all sites at [facility]. For routine questions regarding patient records, call [phone] during business hours, M-F 8:00 AM - 5:00 PM Central Time. Record requests for emergency care only can be directed to [phone] at any time.[facility] Allergies Active Allergy Reactions Criticality Noted Date Comments Pollen Extracts Cough 12/15/2017 Medications * This document contains information received from the source organization and may not represent a complete record from that organization. acetaminophen (TYLENOL) 500 mg tablet Take 500 mg by mouth every 6 (six) hours as needed. 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 Basic Metabolic Panel, Hemoglobin A1c 03/27/2025 Orders Only Division of Gastroenterology in [place], [place] [address] [place] [address] External, Ordering Provider, M.D. from Last 3 [...] drink = 0.6 oz pur e alcohol) [facility] Utilities Answer Date Recorded In the past 12 months has e electric, gas, oil, or water [employer] threatened to shut off services in your [...] your living situation today? I have a [facility] place to live 09/04/2023 Education Answer Date Recorded What is the highest level of school you have completed or the highest degree you have received? Bachelor's degree (e.g., BA, AB, BS) 02/15/2022 Sex and Gender Information Value Date Recorded Sex Assigned at Male 03/06/2021 10:40 AM CDT Legal Sex Male 2:54 PM ASBESTOS WORKER Gender Identity Male 08/08/2020 8:57 AM ASBESTOS WORKER Sexual Orientation Straight 07/27/2020 8: 49 AM ASBESTOS WORKER Last Filed Vital Signs Vital Sign Reading Time Taken Comments Blood Pressure 129/78 09/08/2023 8:15 AM ASBESTOS WORKER Pulse 56 09/08/2023 8:15 AM ASBESTOS WORKER Temperature 36.8 C (98.2 F) 03/25/2023 11:18 AM CDT Respiratory Rate 16 09/07/2022 9:10 AM ASBESTOS WORKER Oxygen Saturation 97% 09/08/2023 7:51 AM ASBESTOS WORKER Inhaled Oxygen Concentration - - Weight 65 kg (143 lb 4.8 oz) 09/08/2023 7:51 AM ASBESTOS WORKER Height 166 cm (5' 5.35) 09/08/2023 7:51 AM ASBESTOS WORKER Body Mass Index 23.59 09/08/2023 7:51 AM ASBESTOS WORKER Plan of Treatment Health Maintenance Due Date [...] A1c, B 5.5 0 - 5.6 % [facility] 03/27/2025 11:0 5 AM CDT Narrative [facility] - 03/27/2025 3:37 PM CDT Source result document attached to Order Number [id number] (BASIC METABOLIC PANEL, BLOOD) dated 03/27/2025. External results verified in Extract by Lucía Olmos on 03/27/2025 at 03:32 PM. us Ordering Provider External Jessica LAB BLOOD ADD-ON Final Result [facility] NA [facility] [address] [place] [address], [facility] [phone] * Basic Metabolic Panel (03/27/2025 11:05 AM CDT) EXT Sodium 139 135 - 149 mmol/L [facility] EXT Potassium 5.1 3.6 - 5.1 mmol/L [facility] EXT Chloride 105 96 - 114 mmol/L [facility] EXT CO2 27 20 - 32 mmol/L [facility] EXT Anion Gap 7 7 - 15 mEq/L [facility] EXT BUN (Blood Urea Nitrogen) 19 7 - 30 mg/dL [facility] EXT Creatinine 1.2 0.5 - 1.5 mg/dL [facility] EXT Estimated GFR (eGFR) 60 ml/min [facility] EXT Calcium, Total 9.2 8.4 - 10.6 mg/dL [facility] EXT Glucose 77 60 - 115 mg/dL [facility] 03/27/2025 11:[address] [facility] - 03/27/2025 3:37 PM CDT External results verified in Extract by Lucía Olmos on 03/27/2025 at 03:32 PM. us Ordering Provider External Jessica LAB BLOOD ADD-ON Final Result Performing Organization Address City/[facility]/ZIP Co de Phone Number [facility] [address] [place] [address], [facility] [phone] from Last 3 Months Insurance [address] [place] [address] [facility] MEDICARE Advance Directives For more information, please contact: [phone] Documents on File Type Date Recorded Patient English Horn Player Expl anation Advance Directives 01/14/2023 3:23 PM Ary Alas HCPOA/ADVOCATE/AGENT/ EMERGENCY PHYSICIAN/SURROG ATE Advance Directives 09/01/2021 2:35 PM HCPO A/ADVOCATE/AGENT/ EMERGENCY PHYSICIAN/SURROG ATE Healthcare Agents on File Name Relationship Healthcare Agent Relationship Communication Ary Jaclyn Bentley Spouse Health Care Agent [email or web address] Greg Bentley Unknown Health Care Agent Kaylie Nunez Relative Health Care Agent [email or web address] Care Teams Acupuncture Physician Relationship Specialty Start Date End Date Elsewhere, Pcp PCP - General Internal Medicine 10/26/24
--- OUTSIDE RECORDS SUMMARY | 2025-05-30 00:14 | XMS_ITS | Clinical Summary ---
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 [place] [address] [facility] [address] [place] [address] Self, Referral 03/12/2025 Orders Only [facility] [address] [place], [place] [id number] Goldie Phillips 1 scan: (1-Ord) ZIO from Last 3 Months Immunizations Immunization Administration Dates Next Due Td (Age >=7 Years) 05/06/1992 Family History Medical History Relation Name Comments Genetic Other 1 Father of [place] age 68~Mother of pneumonia age 85 and senile demintia after 80 y/o~Relevant illness in sibling; 1/2 sister ETOH cirrhosis age 50; another 1/2 sister who was a twin age 70 from heart attack and also dx with colon cancer (dx at* Genetic Other 2 Father of [place] age 68~Mother of pneumonia age 85 and [...] on file Legal Sex 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 Gender Identity Not on file Sexual Orientation Not on file Obstetrics History Last Filed Vital Signs Vital Sign Reading Time Taken Comments Blood Pressure 155/81 03/10/2024 9:52 AM CDT Pulse 54 03/10/2024 9:52 AM CDT Temperature 36.4 C (97.6 F) 05/31/1998 12:00 AM DINING ROOM ATTENDANT CAFETERIA Respiratory Rate 16 05/17/1998 12:00 AM DINING ROOM ATTENDANT CAFETERIA Oxygen Saturation 99% 03/10/2024 9:52 AM CDT Inhaled Oxygen Concentration - - Weight 67.2 kg (148 lb 3.2 oz) 03/10/2024 9:52 A M CDT Height 163 cm (5' 4.17) 03/10/2024 9:52 AM CDT Body Mass Index 25.3 03/10/2024 9:52 AM CDT Plan of Treatment Upcoming Encounters Date Type Department Care Team (Late st Contact Info) Description 07/10/2025 1:00 PM DINING ROOM ATTENDANT CAFETERIA Office Visit [facility] Special[facility] [place] [address] [facility] [address] [place] [address] Erik Moody MD [address] [facility] [address] [place], [place] [phone] Health Maintenance Due Date Last Done Comments [...] PART B HB ONLY MEDICARE PB ONLY [facility] Advance Directives Documents on File Type Date Recorded Patient General Manager Expl anation POLST 04/18/2024 Care Teams Public Works Inspector Relationship Specialty Start Date End Date Audra Hunter MD [address] [address] PCP - General Family Practice 10/19/24
--- OUTSIDE RECORDS SUMMARY | 2025-05-30 00:14 | XMS_ITS | Encounter Summary ---
Author Organization [facility] Address [address] [place] [address] Care Team Providers Care Manager Location Name Role Phone Elsewhere, Pcp Primary Care Provider Unavailabl e Encounter Details Date Type Department Care Team (Latest Contact Info) Description 03/28/2025 Results Follow-Up Division of Gastroenterology in [place], [place] [address] [place] [address] Tomeka Hough, RStacieN. [address] [place] [address] Basic Metabolic Panel, Hemoglobin A1c Social History Tobacco Use Types Packs/Day Years Used Date Smoking Tobacco: Former Pipe Passive Smoke Exposure: Past Smokeless Tobacco: Never Comments:dates are approxima te Alcohol Use Standard Drinks/Week Comments Not Currently 0 (1 standard drink = 0.6 oz pur e alcohol) [facility] Utilities Answer Date Recorded In the past 12 months has th e electric, gas, oil, or water [employer] threatened to shut off services in your [...] your living situation today? I have a [facility] place to live 09/04/2023 Education Answer Date Recorded What is the highest level of school you have completed or the highest degree you have received? Bachelor's degree (e.g., BA, AB, BS) 02/15/2022 Sex and Gender Information Value Date Recorded Sex Assigned at Male 03/06/2021 10:40 AM CDT Legal Sex Male 2:54 PM SCANNER OPERATOR Gender Identity Male 08/08/2020 8:57 AM SCANNER OPERATOR Sexual Orientation Straight 07/27/2020 8: 49 AM SCANNER OPERATOR documented as of this encounter Plan of Treatment Not on file documented as of this encounter Visit Diagnoses Not on filedocumented in this encounter Additional Health Concerns Assessment Noted Time PHQ-9 Depression Total Score: 0 01/27/20 22 9:25 AM CDT documented as of this encounter Care Teams Manager Location Relationship Specialty Start Date End Date Elsewhere, Pcp PCP - General Internal Medicine 10/26/24 documented as of this encounter
--- OUTSIDE RECORDS SUMMARY | 2025-05-30 00:15 | XMS_ITS | Encounter Summary ---
Author Organization [facility] Address [address] [place] [address] Care Team Providers Care Golf Course Patroller Name Role Phone Elsewhere, Pcp Primary Care Provider Unavailabl e Encounter Details Date Type Department Care Team (Late st Contact Info) Description 02/26/2022 Orders Only [facility] [address] [place] [address] [facility], Provider, Screening Test Laboratory Social History Tobacco [...] place to sleep or slept in a chcf (including now)? No 02/15/2022 Depression Answer Date [...] AM CDT Legal Sex Male 2:54 PM HEAD OF DRAMA Gender Identity Male 08/08/2020 8:57 AM HEAD OF DRAMA Sexual Orientation Straight 07/27/2020 8: 49 AM HEAD OF DRAMA documented as of this encounter Plan of Treatment Not on file documented as of this encounter Visit Diagnoses Diagnosis Screening Test Laboratory documented in this encounter Additional Health Concerns Infection Onset Date Last Indicated Resolved Time COVID19 Pending 02/26/2022 02/26/2022 02/26/2022 1 1:40 AM CDT COVID19 Pending 02/26/2022 02/26/202202/26/2022 1 :12 PM CDT COVID19 Pending 06/19/2022 06/19/2022 06/19/2022 1 0:27 AM HEAD OF DRAMA COVID19 Pending 06/19/2022 06/19/2022 06/19/2022 1 1:20 AM HEAD OF DRAMA COVID19 06/19/2022 06/19/2022 07/09/2022 5:18 AM HEAD OF DRAMA Assessment Noted Time PHQ-9 Depression Total Score: 0 01/27/20 9:25 AM CDT documented as of this encounter Care Teams Golf Course Patroller Relationship Specialty Start Date End Date Elsewhere, Pcp PCP - General Internal Medicine 10/26/24 documented as of this encounter
== END 2025-05-29 10:16 | disposition home or self-care (01) ==
LOC: NPINS 10:15
PROVIDERS: PCP Student in an Organized Health Care Education/Training Program; Visit Provider Nurse Practitioner Adult Health
DX: E87.5 Hyperkalemia (principal)
CPT/HCPCS: 80048

== ENCOUNTER 2025-06-19 11:05 | Outpatient (CLI) | payer MEDICARE, BC, SELFPAY | END 2025-06-19 11:06 | disposition home or self-care (01) | LOC: AMB 06-21 22:07 | PROVIDERS: PCP Family Medicine; Visit Provider Family Medicine | DX: R50.9 Fever, unspecified (principal); R41.82 Altered mental status, unspecified | CPT/HCPCS: A0425; A0429 ==